=== PATIENT | female | born 1955 | race Caucasian/White ===

== ENCOUNTER 2016-02-16 10:26 | Inpatient (IN) | payer SELFPAY ==
[~2016-02-16] VITALS: Ht 160 cm; Wt 81.9 kg
[~2016-02-16 10:26] MED LIST: ALBUTEROL0.09 MG/A2 INH; AMOXIL500 MG PO; AUGMENTIN 875875 MG PO; AVPAK AZITHROM250 M1 PO; DELTASONE10 MG PO; DUONEB 3 MG/3 ML3 M1 INH; LISINOPRIL5 MG PO; MEDROL DOSEPAK4 MG PO; NKHM; PREDNICOT10 MG PO; PREDNISONE10 MG PO; PROVENTIL0.09 MG/AC IH; ZESTRIL,PRINIVI20 MG PO; ZITHROMAX Z PA250 MG PO
[2016-02-16 10:57] VITALS: BP 163/82
[2016-02-16 12:30] LABS: HEMATOCRIT 35.9 % (37.0-47.0); HEMOGLOBIN 12.2 g/dl (12.0-16.0); MEAN CORPUSCULAR HGB 32.3 pg (27.0-31.0); MEAN PLATELET VOLUME 10.6 fl (9.6-12.3); PLATELET COUNT AUTOMATED 405 10*3/uL (130-400); RED BLOOD COUNT 3.78 10*6/uL (4.10-5.10); RED CELL DISTRI WIDTH 13.7 % (0-14.5)
[2016-02-16 12:32] LABS: ABG BASE EXCESS 2.5 mmol/L (-2.0-2.0); ABG CO2 CONTENT 26.9 mmol/L (23-27); ABG HCO3 25.8 mmol/l (22-26); ABG TEMPERATURE 100.2 F (98.0-99.0); ARTERIAL BLOOD GAS PH 7.446 (7.35-7.45); ARTERIAL BLOOD GAS PO2 64.8 mmHg (80-90)
[2016-02-16 12:38] VITALS: BP 138/80
[2016-02-16 12:46] LABS: BUN 8 mg/dl (7-24); CARBON DIOXIDE 27 mmol/L (21-32); CHLORIDE 104 mmol/L (98-107); EST GLOM FILT AFRICAN AMERICAN > 60 ml/min; GLUCOSE 103 mg/dL (65-99); LYMPHOCYTE # 2.1 10*3/uL (1.3-4.4); MONOCYTE # 2.5 10*3/uL (0.1-1.0); NEUTROPHIL # 18.4 10*3/uL (2.3-7.9); NEUTROPHILS 80 % (47-73); PLATELET SUFFICIENCY NORMAL (NORMAL); POTASSIUM 3.3 mmol/L (3.5-5.1); SODIUM 139 mmol/L (136-145); TOTAL CELLS COUNTED 100 #CELLS
[2016-02-16 16:00] VITALS: BP 145/74
[2016-02-16 20:00] VITALS: BP 138/71
[2016-02-17] VITALS: BP 141/87
[2016-02-17 05:47] LABS: BUN 12 mg/dl (7-24); CARBON DIOXIDE 23 mmol/L (21-32); CHLORIDE 107 mmol/L (98-107); CHOLESTEROL 168 mg/dL (<200); EST GLOM FILT AFRICAN AMERICAN > 60 ml/min; FREE T4 1.04 ng/dl (0.76-1.46); GLUCOSE 203 mg/dL (65-99); HDL CHOLESTEROL 69 mg/dl (40-60); LDL CHOLESTEROL 84 mg/dL (9-159); MAGNESIUM 1.7 mg/dL (1.5-2.1); SODIUM 142 mmol/L (136-145); THYROID STIM HORMONE (HS) 0.236 uIU/ml (0.358-4.75); TRIGLYCERIDES 76 mg/dl (<150); VLDL CHOLESTEROL 15 mg/dL (6-40)
[2016-02-17 05:51] LABS: HEMOGLOBIN A1c 4.8 % (4.8-5.6)
[2016-02-17 06:09] LABS: HEMATOCRIT 35.1 % (37.0-47.0); HEMOGLOBIN 11.6 g/dl (12.0-16.0); MEAN CELL VOLUME 96.2 fl (81.0-99.0); MEAN CORPUSCULAR HGB 31.8 pg (27.0-31.0); MEAN PLATELET VOLUME 11.5 fl (9.6-12.3); PLATELET COUNT AUTOMATED 400 10*3/uL (130-400); RED BLOOD COUNT 3.65 10*6/uL (4.10-5.10); RED CELL DISTRI WIDTH 13.6 % (0-14.5); WHITE BLOOD COUNT 22.3 10*3/uL (4.8-10.8)
[2016-02-17 07:20] LABS: MONOCYTE # 0.2 10*3/uL (0.1-1.0); NEUTROPHIL # 22.1 10*3/uL (2.3-7.9); NEUTROPHILS 99 % (47-73); TOTAL CELLS COUNTED 100 #CELLS
[2016-02-17 07:21] LABS: PLATELET SUFFICIENCY NORMAL (NORMAL)
[2016-02-17 08:00] VITALS: BP 132/63
[2016-02-17 12:00] VITALS: BP 133/66
[2016-02-17 16:00] VITALS: BP 132/66
[2016-02-17 20:00] VITALS: BP 139/67
[2016-02-17 23:50] VITALS: BP 150/88
[2016-02-18] VITALS: BP 157/82
[2016-02-18 03:50] VITALS: BP 138/78
[2016-02-18 06:26] LABS: HEMATOCRIT 33.6 % (37.0-47.0); HEMOGLOBIN 11.3 g/dl (12.0-16.0); MEAN CELL VOLUME 95.5 fl (81.0-99.0); MEAN CORPUSCULAR HGB 32.1 pg (27.0-31.0); MEAN CORPUSCULAR HGB CONC 33.6 g/dl (33.0-37.0); MEAN PLATELET VOLUME 11.4 fl (9.6-12.3); PLATELET COUNT AUTOMATED 418 10*3/uL (130-400); RED BLOOD COUNT 3.52 10*6/uL (4.10-5.10); WHITE BLOOD COUNT 31.1 10*3/uL (4.8-10.8)
[2016-02-18 07:00] LABS: BUN 18 mg/dl (7-24); CARBON DIOXIDE 22 mmol/L (21-32); CHLORIDE 108 mmol/L (98-107); EST GLOM FILT AFRICAN AMERICAN > 60 ml/min; GLUCOSE 114 mg/dL (65-99); POTASSIUM 3.8 mmol/L (3.5-5.1); SODIUM 141 mmol/L (136-145)
[2016-02-18 07:19] LABS: HOWELL-JOLLY BODIES FEW; LYMPHOCYTE # 1.6 10*3/uL (1.3-4.4); MONOCYTE # 0.9 10*3/uL (0.1-1.0); NEUTROPHIL # 28.6 10*3/uL (2.3-7.9); NEUTROPHILS 92 % (47-73); POLYCHROMASIA SLIGHT; TOTAL CELLS COUNTED 100 #CELLS
[2016-02-18 07:20] LABS: PLATELET SUFFICIENCY NORMAL (NORMAL)
[2016-02-18 08:00] VITALS: BP 150/84
[2016-02-18] MEDS ORDERED: LEVAQUIN750 M1 PO (11:45)
[2016-02-18] MEDS ORDERED: PREDNISONE10 MG PO (11:45)
[2016-02-18 12:00] VITALS: BP 143/75; BP 146/81
[2016-02-18] MEDS ORDERED: DUONEB 3 MG/3 ML3 M1 NEB (14:17)
[2016-02-18 15:09] LABS: FOLIC ACID 8.11 ng/mL (>5.38)
== END 2016-02-18 14:15 | disposition home or self-care (01) | DRG 871 ==
LOC: ED 10:26 → EDHOLD 14:04 → 4E 14:41
PROVIDERS: Emergency Medicine; Internal Medicine
DX: A40.3 Sepsis due to Streptococcus pneumoniae (principal); J96.01 Acute respiratory failure with hypoxia; J18.1 Lobar pneumonia, unspecified organism; J44.1 Chronic obstructive pulmonary disease with (acute) exacerbation; J44.0 Chronic obstructive pulmonary disease with (acute) lower respiratory infection; I10 Essential (primary) hypertension; E87.6 Hypokalemia; T38.0X5A Adverse effect of glucocorticoids and synthetic analogues, initial encounter; F17.219 Nicotine dependence, cigarettes, with unspecified nicotine-induced disorders; Y95 Nosocomial condition; Z90.81 Acquired absence of spleen

== ENCOUNTER 2016-03-04 16:37 | Emergency (ER) | payer SELFPAY ==
[~2016-03-04] VITALS: Ht 160 cm; Wt 88.9 kg
[~2016-03-04 16:37] MED LIST changes: +DUONEB 3 MG/3 ML3 M1 NEB; +LEVAQUIN750 M1 PO
[2016-03-04] MEDS ORDERED: VALTREX1 GM PO (17:18)
[2016-03-04] MEDS ORDERED: NORCO 5-325 TA1 EACH PO (17:18)
== END 2016-03-04 17:49 | disposition home or self-care (01) ==
LOC: ED 16:37
DX: B02.9 Zoster without complications (principal); F17.200 Nicotine dependence, unspecified, uncomplicated; Z88.1 Allergy status to other antibiotic agents

== ENCOUNTER 2016-09-07 09:50 | Inpatient (IN) | payer SELFPAY ==
[~2016-09-07] VITALS: Ht 158.7 cm; Wt 80.6 kg
[2016-09-07] VITALS (13 sets, daily range): BP systolic 98–200; BP diastolic 47–118
[~2016-09-07 09:50] MED LIST changes: +NORCO 5-325 TA1 EACH PO; +VALTREX1 GM PO
[2016-09-07] MEDS ORDERED: VENTOLIN H0.09 MG/AC INH (09:58)
[2016-09-07 10:17] LABS: BASO # 0.1 10*3/uL (0.0-0.1); BASO % 0.6 % (0.0-1.0); EOS # 0.1 10*3/uL (0.0-0.4); EOS % 0.5 % (1.0-4.0); HEMATOCRIT 41.6 % (37.0-47.0); HEMOGLOBIN 14.4 g/dl (12.0-16.0); LYMPH # 2.7 10*3/uL (1.3-4.4); MEAN CELL VOLUME 93.1 fl (81.0-99.0); MEAN CORPUSCULAR HGB 32.2 pg (27.0-31.0); MEAN CORPUSCULAR HGB CONC 34.6 g/dl (33.0-37.0); MEAN PLATELET VOLUME 10.3 fl (9.6-12.3); MONO # 1.3 10*3/uL (0.1-1.0); NEUT # 8.7 10*3/uL (2.3-7.9); NEUT % 67.6 % (47.0-73.0); PLATELET COUNT AUTOMATED 346 10*3/uL (130-400); RED BLOOD COUNT 4.47 10*6/uL (4.10-5.10); RED CELL DISTRI WIDTH 13.5 % (0-14.5); WHITE BLOOD COUNT 12.9 10*3/uL (4.8-10.8)
[2016-09-07 10:25] LABS: PROTHROMBIN TIME 10.8 SECONDS (9.0-12.4)
[2016-09-07 10:34] LABS: ALBUMIN 3.8 gm/dl (3.1-4.5); ALKALINE PHOSPHATASE 107 U/L (45-117); BILIRUBIN, TOTAL 0.8 mg/dl (0.2-1.0); BUN 10 mg/dl (7-24); CARBON DIOXIDE 24 mmol/L (21-32); CHLORIDE 106 mmol/L (98-107); CPK 73 U/L (26-192); EST GLOM FILT AFRICAN AMERICAN > 60 ml/min; GLUCOSE 103 mg/dL (65-99); MAGNESIUM 1.6 mg/dL (1.5-2.1); POTASSIUM 3.6 mmol/L (3.5-5.1); SGOT/AST 22 IU/L (3-35); SGPT/ALT 29 U/L (12-78); SODIUM 142 mmol/L (136-145); TOTAL PROTEIN 7.5 gm/dL (6.4-8.2)
[2016-09-07 10:35] LABS: TROPONIN I < 0.015 ng/ml (<0.045)
[2016-09-07 18:07] LABS: CKMB 1.5 ng/ml (0.5-3.6); CPK 80 U/L (26-192); TROPONIN I < 0.015 ng/ml (<0.045)
[2016-09-08] VITALS: BP 129/73
[2016-09-08 05:57] LABS: BASO # 0.1 10*3/uL (0.0-0.1); BASO % 0.6 % (0.0-1.0); EOS # 0.2 10*3/uL (0.0-0.4); EOS % 2.8 % (1.0-4.0); HEMATOCRIT 37.9 % (37.0-47.0); HEMOGLOBIN 12.6 g/dl (12.0-16.0); LYMPH # 2.7 10*3/uL (1.3-4.4); MEAN CELL VOLUME 95.7 fl (81.0-99.0); MEAN CORPUSCULAR HGB 31.8 pg (27.0-31.0); MEAN CORPUSCULAR HGB CONC 33.2 g/dl (33.0-37.0); MEAN PLATELET VOLUME 10.6 fl (9.6-12.3); MONO # 0.8 10*3/uL (0.1-1.0); MONO % 10.5 % (3.0-9.0); NEUT # 4.1 10*3/uL (2.3-7.9); PLATELET COUNT AUTOMATED 321 10*3/uL (130-400); RED BLOOD COUNT 3.96 10*6/uL (4.10-5.10); RED CELL DISTRI WIDTH 13.7 % (0-14.5); WHITE BLOOD COUNT 7.8 10*3/uL (4.8-10.8)
[2016-09-08 06:14] LABS: HEMOGLOBIN A1c 4.8 % (4.8-5.6)
[2016-09-08 06:29] LABS: PROTHROMBIN TIME 10.1 SECONDS (9.0-12.4)
[2016-09-08 06:33] LABS: BUN 11 mg/dl (7-24); CARBON DIOXIDE 27 mmol/L (21-32); CHLORIDE 104 mmol/L (98-107); GLUCOSE 95 mg/dL (65-99); SODIUM 140 mmol/L (136-145)
[2016-09-08 06:46] LABS: CHOLESTEROL 164 mg/dL (<200); EST GLOM FILT AFRICAN AMERICAN > 60 ml/min; FREE T4 0.84 ng/dl (0.76-1.46); HDL CHOLESTEROL 45 mg/dl (40-60); LDL CHOLESTEROL 79 mg/dL (9-159); TRIGLYCERIDES 198 mg/dl (<150); VLDL CHOLESTEROL 40 mg/dL (6-40)
[2016-09-08 07:32] LABS: VITAMIN D, 25-HYDROXY 11.3 ng/mL (30-100)
[2016-09-08 07:33] LABS: FOLIC ACID 11.2 ng/mL (>5.38)
[2016-09-08 08:00] VITALS: BP 153/78
[2016-09-08] MEDS ORDERED: D-1000 185 MG-11 TAB PO (11:24)
[2016-09-08] MEDS ORDERED: LISINOPRIL20 MG PO (11:24)
[2016-09-08] MEDS ORDERED: B12,B-12,B 12500 MC1 PO (11:24)
== END 2016-09-08 12:18 | disposition home or self-care (01) | DRG 304 ==
LOC: ED 09:50 → EDHOLD 12:28 → 4E 12:32
PROVIDERS: Family Medicine; Registered Nurse
DX: I16.1 Hypertensive emergency (principal); N17.0 Acute kidney failure with tubular necrosis; G93.41 Metabolic encephalopathy; H47.10 Unspecified papilledema; D72.829 Elevated white blood cell count, unspecified; J44.9 Chronic obstructive pulmonary disease, unspecified; F17.210 Nicotine dependence, cigarettes, uncomplicated; N39.3 Stress incontinence (female) (male); I10 Essential (primary) hypertension; N39.41 Urge incontinence; Z90.81 Acquired absence of spleen; Z82.61 Family history of arthritis; Z82.49 Family history of ischemic heart disease and other diseases of the circulatory system

== ENCOUNTER 2017-05-31 11:35 | Inpatient (IN) | payer SELFPAY ==
[~2017-05-31] VITALS: Ht 160 cm; Wt 74.4 kg
--- NOTE | ~2017-05-31 | O ---
[place], [place] OPERATIVE NOTE NAME: ELLE KELLER UNIT #: [id number] ROOM: 506 DOCTOR: ALICIA HOBBS,DANNY BIRTHDATE: [birth year] DOS: 06/03/2017 INDICATIONS: A 62-year-old patient who presented with chief complaint of abnormal liver function test, leukocytosis, pancreatitis, undergoing investigation. We have had previous ERCP which has been ambiguous in detail. MRCP was obtained. I talked to the Radiologist, he could not make sense out of the findings. Therefore, the concerns that we have that we have to organize repeat ERCP. PROCEDURE: Today's procedure part of investigation is ERCP. PREMEDICATION: Versed and Diprivan. SCOPE: Olympus side viewing duodenum scope. REPORT: After putting the patient in left lateral position and application of lubricant to the scope, the scope was introduced. Thereafter, under direct visualization, I advanced through the length of esophagus into gastric pouch into duodenal bulb in front of the papilla of Vater. Selective cannulization was of common duct was done. Guidewire was advanced. Again, as soon as I infused dye into the ampulla of Vater is picked up with the cystic structure, which appears to be taking off from proximal common bile duct. Some dye was infused into the common duct. Otherwise, no obstruction was seen; however, limited patient extubated after ideation or confirmation of cholodocal cyst. The patient tolerated procedure well. 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 ____. PLAN AND DISCUSSION: At this stage, we are going to assure that she does not have synchronous infectious concerns like lungs and UTI. In future, we can refer for biliary surgery for removal of a Cholodocal cystectomy. That may be also the cause of her pancreatitis. [place], [place] OPERATIVE NOTE NAME: ELLE KELLER UNIT #: [id number] ROOM: 506 DOCTOR: DANNY VARGAS MD BIRTHDATE: [birth year] DANNY VARGAS MD CM:OPRECORD:OPERATIVE NOTE 1514 1622 DANNY VARGAS MD 06/03/17 1621 interface
--- NOTE | ~2017-05-31 | O ---
[place], [place] OPERATIVE NOTE [id number] UN[facility] #: [id number] ROOM: 416 DOCTOR: ALICIA HOBBSDANNY BIRTHDATE: [birth year] DOS: 06/01/2017 HISTORY OF PRESENT ILLNESS: The patient is 62 years old, who has presented with multiple medical problems, among which abnormal LFTs, pancreatitis, suspected for gallstone pancreatitis and elevation of lipase greater than 1300. PAST MEDICAL HISTORY: COPD, chronic bronchitis, hypertension. PAST SURGICAL HISTORY: , splenectomy. SOCIAL HISTORY: Smoker and social alcohol consumer. FAMILY HISTORY: Noncontributory. ALLERGIES: LEVOFLOXACIN. Consultation has been in detail dictated. PROCEDURE: Today's procedure part of investigation is ERCP. PREMEDICATION: Versed and Diprivan. SCOPE: Olympus side viewing duodenum scope. REPORT: After putting the patient in left lateral position and application of lubricant to the scope, the scope was introduced. Thereafter, under direct visualization, advanced through the length of esophagus into the duodenum. Severe duodenitis was identified with great difficulty, a very ambiguous papilla was suspected, finally cannulized and dye was infused and dye is only being picked up with cystic duct and gallbladder sac and I could not convinced the ducts to accept dyes. This irregular finding despite the fact that I had a guidewire to the hepatic radicles was abnormal due to the fact that dye was not been picked up with a biliary tree and only being picked up with cystic duct. Despite the fact that I pulled the cannula out all the way toward the orifice of the ampulla and reinfused the dye, this was not opacifying the ducts. At this stage, since I was concerned about the ambiguity of the anatomy, we had to extubate the patient and radiologic films were obtained that clearly shows gallbladder sac, which is distended as well as shows the part of the cystic duct. PLAN AND DISCUSSION: I am going to organize an MRCP tomorrow morning, if possible repeating the LFTs and clinical reassessment after tomorrow's results. In any case, if we had to even do therapeutics, it would have been difficult due to the position of the ampulla and difficulty in cannulization. I see it difficult technically for papillotomy, accessing the common duct with a stent if we needed to. However, I need more information; therefore, we are going to make all the arrangements above-mentioned. We are going to keep the patient off the anticoagulant. We are going to have a followup on ____ lipid levels tomorrow as well and daily and redecision if we have to redo ERCP or others as may be necessary. [place], [place] OPERATIVE NOTE NAME: ELLE KELLER Shravan UNIT #: [id number] ROOM: 416 DOCTOR: DANNY VARGAS MD BIRTHDATE: [birth year] DANNY VARGAS MD CM:OPRECORD:OPERATIVE NOTE 11 43 DANNY VARGAS MD 06/01/172042 interface
--- NOTE | ~2017-05-31 | CON ---
[place], [place] REPORT OF CONSULTATION [id number] UNIT #: [id number] ROOM: 416 DOCTOR: DANNY VARGAS MD BIRTHDATE: [birth year] DOS: 06/01/2017 HISTORY OF PRESENT ILLNESS: This is a 62-year-old patient who has presented with multiple problems among which has been her shortness of breath, oxygen dependency and known history of COPD and shortness of breath. The patient was found with abnormal liver function tests. I was called by Emergency Room and the concern about abnormal LFT and dilation of common bile duct to 1.9 cm. Multiple bilateral renal lithiasis. So we have been concerned since she has pancreatitis to rule out gallstone pancreatitis. At the time of admission, her electrolytes were reviewed, which were within borderline hypokalemia. Calcium was 6.6. Her slight elevation of BUN and creatinine noticed. Liver function tests: SGOT and SGPT of 100+, alkaline phosphatase 128, lipase of 1300+ was identified. Calcium ionized is 3.29. Low calcium. Comprehensive metabolic panel was reassessed, drop in calcium to 5.8 was noticed. Magnesium of 1.4 rather has been addressed. Hemoglobin A1c 4.8. Urine culture multi-organism contamination possibility. PAST MEDICAL HISTORY: COPD, hypertension, and nicotine dependency. PAST SURGICAL HISTORY: and splenectomy, which was done secondary to trauma. SOCIAL HISTORY: Active smoker and social alcohol consumer. FAMILY HISTORY: Noncontributory. ALLERGIES: LEVOFLOXACIN. HOME MEDICATIONS: Include multivitamin and lisinopril. REVIEW OF SYSTEMS: HEENT: Denies double vision, blurred vision. RESPIRATORY: Admits to shortness of breath. CARDIOVASCULAR: Denies chest pain. DIGESTIVE SYSTEM: Across abdominal pain, severe with radiation to the back. No hematemesis, no hematochezia. PHYSICAL EXAMINATION: RESPIRATORY: Short of breath on nasal O2. VITAL SIGNS: Stable. HEENT: Benign. Eyes: Pupils round and reactive. Sclerae nonicteric. Mouth and buccal mucosa benign. NECK: Supple, no thyromegaly. CHEST: Symmetric anatomy. Decreased air entry bilaterally is noticed. The patient is wheezing. HEART: Normal sinus rhythm, no gallop, no murmur. ABDOMEN: Soft. No organomegaly, large in anatomy, tender across the abdomen, which she says radiating to the back. EXTREMITIES: No cyanosis, no pedal edema. NEUROLOGIC: Alert and oriented to time and person. She is able to give me her [place], [place] REPORT OF CONSULTATION NAME: ELLE KELLER UNIT #: [id number] ROOM: [facility] DOCTOR: DANNY VARGAS MD BIRTHDATE: [birth year] medical history. IMPRESSION: Pancreatitis, ruling out gallstone pancreatitis, dilated common bile duct with possibility of pathology obstructive at distal common duct, abnormal liver function test, status post hydration, status post correction of hypomagnesemia and hypokalemia, at the present time hypocalcemia. Renal insufficiency. Hypocalcemia could be secondary to saponification, the patient with normal albumin level. PLAN AND DISCUSSION: We are going to see if there is obstructive pathology of common duct. This is going to be addressed with an endoscopic retrograde cholangiopancreatography and therapeutics and other adjunctive diagnoses as outlined in paragraph past medical and surgical history and clinical reassessment. We are on the other hand recognizing. The patient's triglyceride has been 218 and normal is less than 150. Perhaps this is contribution from above as well possibly. She is asking for food. She has been told that she is going to be n.p.o. on IV. As far as calcium is concerned, replacement has been given. DANNY VARGAS MD CM:CONSTR:REPORT OF CONSULTATION 1641 06/01/17 4595 interface
[~2017-05-31 11:35] MED LIST changes: +B12,B-12,B 12500 MC1 PO; +D-1000 185 MG-11 TAB PO; +LISINOPRIL20 MG PO; +VENTOLIN H0.09 MG/AC INH
[2017-05-31 11:40] VITALS: BP 128/75
[2017-05-31 12:06] LABS: HEMATOCRIT 42.8 % (37.0-47.0); HEMOGLOBIN 14.9 g/dl (12.0-16.0); MEAN CELL VOLUME 93.4 fl (81.0-99.0); MEAN CORPUSCULAR HGB 32.5 pg (27.0-31.0); MEAN CORPUSCULAR HGB CONC 34.8 g/dl (33.0-37.0); MEAN PLATELET VOLUME 10.7 fl (9.6-12.3); PLATELET COUNT AUTOMATED 237 10*3/uL (130-400); RED BLOOD COUNT 4.58 10*6/uL (4.10-5.10); RED CELL DISTRI WIDTH 13.5 % (0-14.5)
[2017-05-31 12:23] LABS: ALBUMIN 3.2 gm/dl (3.1-4.5); CREATININE 1.43 mg/dL (0.55-1.02); POTASSIUM 3.2 mmol/L (3.5-5.1); TOTAL PROTEIN 6.8 gm/dL (6.4-8.2)
[2017-05-31 12:27] LABS: PLATELET SUFFICIENCY NORMAL (NORMAL); TOTAL CELLS COUNTED 100 #CELLS
[2017-05-31 12:31] LABS: BILIRUBIN 1+ (NEGATIVE); BLOOD TRACE-INTACT (NEGATIVE); CLARITY CLOUDY (CLEAR); COLOR YELLOW (YELLOW); GLUCOSE NEGATIVE (NEGATIVE); KETONE NEGATIVE (NEGATIVE); LEUKO ESTERASE 3+ (NEGATIVE); NITRITE POSITIVE (NEGATIVE); SPECIFIC GRAVITY 1.025 (1.005-1.030)
[2017-05-31 12:35] VITALS: BP 110/64
[2017-05-31 12:54] LABS: BACTERIA 4+; EPITHELIAL CELLS TNTC; RBC 21-30 rbc/hpf (0-2); WBC 51-100 wbc/hpf (0-5)
[2017-05-31 14:05] VITALS: BP 111/69
[2017-05-31 16:00] VITALS: BP 119/75
[2017-05-31 17:40] VITALS: BP 106/71
[2017-05-31] MEDS ORDERED: HAIR, SKIN & N1 EACH PO (18:06)
[2017-05-31 20:00] VITALS: BP 116/82
[2017-06-01] VITALS (12 sets, daily range): BP systolic 100–157; BP diastolic 54–88
[2017-06-01 00:27] LABS: ALBUMIN 2.7 gm/dl (3.1-4.5); CREATININE 1.33 mg/dL (0.55-1.02); POTASSIUM 3.8 mmol/L (3.5-5.1); TOTAL PROTEIN 5.8 gm/dL (6.4-8.2)
[2017-06-01 05:55] LABS: BASO % 0.2 % (0.0-1.0); EOS % 0.1 % (1.0-4.0); LYMPH # 0.9 10*3/uL (1.3-4.4); LYMPH % 5.1 % (27.0-41.0); MEAN CELL VOLUME 95.6 fl (81.0-99.0); MEAN CORPUSCULAR HGB 32.6 pg (27.0-31.0); MEAN CORPUSCULAR HGB CONC 34.1 g/dl (33.0-37.0); MEAN PLATELET VOLUME 11.3 fl (9.6-12.3); MONO # 1.1 10*3/uL (0.1-1.0); MONO % 5.8 % (3.0-9.0); NEUT # 16.2 10*3/uL (2.3-7.9); NEUT % 88.3 % (47.0-73.0); PLATELET COUNT AUTOMATED 205 10*3/uL (130-400); RED BLOOD COUNT 3.87 10*6/uL (4.10-5.10); RED CELL DISTRI WIDTH 13.6 % (0-14.5); WHITE BLOOD COUNT 18.3 10*3/uL (4.8-10.8)
[2017-06-01 05:56] LABS: HEMOGLOBIN 12.6 g/dl (12.0-16.0)
[2017-06-01 06:10] LABS: ALBUMIN 2.7 gm/dl (3.1-4.5); CREATININE 1.3 mg/dL (0.55-1.02); PHOSPHOROUS 2.7 mg/dL (2.5-4.9); POTASSIUM 3.6 mmol/L (3.5-5.1); TOTAL PROTEIN 5.9 gm/dL (6.4-8.2)
[2017-06-01 06:15] LABS: THYROID STIM HORMONE (HS) 0.898 uIU/ml (0.358-4.75)
[2017-06-02] VITALS: BP 118/75
[2017-06-02 04:00] VITALS: BP 108/64
[2017-06-02 06:04] LABS: ALBUMIN 2.3 gm/dl (3.1-4.5); ALKALINE PHOSPHATASE 90 U/L (45-117); CHLORIDE 113 mmol/L (98-107); CREATININE 0.77 mg/dL (0.55-1.02); LIPASE 355 U/L (73-393); POTASSIUM 3.9 mmol/L (3.5-5.1); SGOT/AST 47 IU/L (3-35); SGPT/ALT 42 U/L (12-78); SODIUM 142 mmol/L (136-145); TOTAL PROTEIN 5.9 gm/dL (6.4-8.2)
[2017-06-02 06:07] LABS: HEMATOCRIT 32.5 % (37.0-47.0); HEMOGLOBIN 10.8 g/dl (12.0-16.0); MEAN CELL VOLUME 97.3 fl (81.0-99.0); MEAN CORPUSCULAR HGB 32.3 pg (27.0-31.0); MEAN CORPUSCULAR HGB CONC 33.2 g/dl (33.0-37.0); MEAN PLATELET VOLUME 11.7 fl (9.6-12.3); PLATELET COUNT AUTOMATED 213 10*3/uL (130-400); RED BLOOD COUNT 3.34 10*6/uL (4.10-5.10); RED CELL DISTRI WIDTH 14.1 % (0-14.5); WHITE BLOOD COUNT 15.4 10*3/uL (4.8-10.8)
[2017-06-02 06:17] LABS: BUN 24 mg/dl (7-24)
[2017-06-02 06:38] LABS: PLATELET SUFFICIENCY NORMAL (NORMAL); TOTAL CELLS COUNTED 100 #CELLS
[2017-06-02 08:00] VITALS: BP 125/67
[2017-06-02 12:00] VITALS: BP 128/72
[2017-06-02 16:00] VITALS: BP 150/77
[2017-06-02 20:00] VITALS: BP 147/71
[2017-06-03] VITALS (11 sets, daily range): BP systolic 126–158; BP diastolic 69–86
[2017-06-03 07:09] LABS: HEMATOCRIT 32.1 % (37.0-47.0); HEMOGLOBIN 10.7 g/dl (12.0-16.0); MEAN CELL VOLUME 98.2 fl (81.0-99.0); MEAN CORPUSCULAR HGB 32.7 pg (27.0-31.0); MEAN CORPUSCULAR HGB CONC 33.3 g/dl (33.0-37.0); MEAN PLATELET VOLUME 11.6 fl (9.6-12.3); NUCLEATED RED BLOOD CELL 0.1 10*3/uL (0.0-0.0); NUCLEATED RED BLOOD CELL 0.5 % (0.0-0.0); PLATELET COUNT AUTOMATED 268 10*3/uL (130-400); RED BLOOD COUNT 3.27 10*6/uL (4.10-5.10); RED CELL DISTRI WIDTH 14.2 % (0-14.5); WHITE BLOOD COUNT 18.8 10*3/uL (4.8-10.8)
[2017-06-03 07:26] LABS: ALBUMIN 2.3 gm/dl (3.1-4.5); ALKALINE PHOSPHATASE 119 U/L (45-117); BUN 14 mg/dl (7-24); CHLORIDE 112 mmol/L (98-107); CREATININE 0.59 mg/dL (0.55-1.02); PHOSPHOROUS 1.3 mg/dL (2.5-4.9); POTASSIUM 3.6 mmol/L (3.5-5.1); SGOT/AST 33 IU/L (3-35); SGPT/ALT 34 U/L (12-78); SODIUM 142 mmol/L (136-145); TOTAL PROTEIN 5.9 gm/dL (6.4-8.2)
[2017-06-03 08:05] LABS: TOTAL CELLS COUNTED 100 #CELLS
[2017-06-03 08:06] LABS: HOWELL-JOLLY BODIES FEW; PLATELET SUFFICIENCY NORMAL (NORMAL); TARGET CELLS FEW
[2017-06-04] VITALS: BP 135/71
[2017-06-04 06:39] LABS: HEMATOCRIT 28.3 % (37.0-47.0); HEMOGLOBIN 9.5 g/dl (12.0-16.0); MEAN CELL VOLUME 97.3 fl (81.0-99.0); MEAN CORPUSCULAR HGB 32.6 pg (27.0-31.0); MEAN CORPUSCULAR HGB CONC 33.6 g/dl (33.0-37.0); MEAN PLATELET VOLUME 10.6 fl (9.6-12.3); NUCLEATED RED BLOOD CELL 0.2 10*3/uL (0.0-0.0); PLATELET COUNT AUTOMATED 292 10*3/uL (130-400); RED BLOOD COUNT 2.91 10*6/uL (4.10-5.10); RED CELL DISTRI WIDTH 14.5 % (0-14.5); WHITE BLOOD COUNT 24.2 10*3/uL (4.8-10.8)
[2017-06-04 07:16] LABS: ALBUMIN 2.2 gm/dl (3.1-4.5); ALKALINE PHOSPHATASE 159 U/L (45-117); BUN 10 mg/dl (7-24); CHLORIDE 110 mmol/L (98-107); CREATININE 0.52 mg/dL (0.55-1.02); LIPASE 133 U/L (73-393); PHOSPHOROUS 2.2 mg/dL (2.5-4.9); POTASSIUM 3.6 mmol/L (3.5-5.1); SGOT/AST 33 IU/L (3-35); SGPT/ALT 31 U/L (12-78); SODIUM 139 mmol/L (136-145); TOTAL PROTEIN 5.7 gm/dL (6.4-8.2)
[2017-06-04 07:17] LABS: TOTAL CELLS COUNTED 100 #CELLS
[2017-06-04 07:18] LABS: PLATELET SUFFICIENCY NORMAL (NORMAL); TARGET CELLS FEW
[2017-06-04 07:19] LABS: HOWELL-JOLLY BODIES FEW; POLYCHROMASIA SLIGHT
[2017-06-04 07:20] LABS: BURR CELLS FEW
[2017-06-04 08:00] VITALS: BP 145/81
[2017-06-04 12:00] VITALS: BP 140/75
== END 2017-06-04 15:38 | disposition short-term general hospital (02) | DRG 871 ==
LOC: ED 11:35 → EDHOLD 17:34 → 4E 17:34 → ICCU 06-01 21:32 → 5E 06-02 09:10
PROVIDERS: Emergency Medicine; Internal Medicine; Student in an Organized Health Care Education/Training Program
PROC: 0FJB8ZZ Inspection of Hepatobiliary Duct, Via Natural or Artificial Opening Endoscopic (ICD-10-PCS; principal; 2017-06-01)
PROC: BF13YZZ Fluoroscopy of Gallbladder and Bile Ducts using Other Contrast (ICD-10-PCS; principal; 2017-06-01)
PROC: 0FJB8ZZ Inspection of Hepatobiliary Duct, Via Natural or Artificial Opening Endoscopic (ICD-10-PCS; 2017-06-03)
PROC: BF10YZZ Fluoroscopy of Bile Ducts using Other Contrast (ICD-10-PCS; 2017-06-03)
DX: A41.9 Sepsis, unspecified organism (principal); K85.90 Acute pancreatitis without necrosis or infection, unspecified; N17.0 Acute kidney failure with tubular necrosis; E43 Unspecified severe protein-calorie malnutrition; K83.8 Other specified diseases of biliary tract; E87.1 Hypo-osmolality and hyponatremia; Q44.4 Choledochal cyst; N39.0 Urinary tract infection, site not specified; J44.9 Chronic obstructive pulmonary disease, unspecified; I10 Essential (primary) hypertension; D72.810 Lymphocytopenia; F17.210 Nicotine dependence, cigarettes, uncomplicated; D64.9 Anemia, unspecified; R73.9 Hyperglycemia, unspecified; E55.9 Vitamin D deficiency, unspecified; E53.8 Deficiency of other specified B group vitamins; D72.9 Disorder of white blood cells, unspecified; E87.6 Hypokalemia; R74.0 Nonspecific elevation of levels of transaminase and lactic acid dehydrogenase [LDH]; R74.8 Abnormal levels of other serum enzymes; N20.0 Calculus of kidney; Z71.6 Tobacco abuse counseling; Z88.1 Allergy status to other antibiotic agents; Z90.81 Acquired absence of spleen; Z82.49 Family history of ischemic heart disease and other diseases of the circulatory system; Z79.899 Other long term (current) drug therapy; Z68.29 Body mass index [BMI] 29.0-29.9, adult

== ENCOUNTER 2017-07-29 05:16 | Emergency (ER) | payer OTHER ==
[~2017-07-29] VITALS: Ht 160 cm; Wt 72.6 kg
--- NOTE | ~2017-07-29 | EKG ---
[place], [place] ELECTROCARDIOGRAM REPORT NAME: ELLE KELLER UNIT #: [id number] ROOM: DOCTOR: CHLOE MORRELL MD BIRTHDATE: [birth year] DOS: 07/29/2017 TIME: 0533 hours. Normal sinus rhythm with 75 beats per minute. The tracing is normal. No previous tracing is available for comparison. CHLOE MORRELL MD CM:EKGRPT:ELECTROCARDIOGRAM REPORT 1119 1420 CHLOE MORRELL MD
[~2017-07-29 05:16] MED LIST changes: +HAIR, SKIN & N1 EACH PO
[2017-07-29 05:44] LABS: HEMATOCRIT 29.9 % (37.0-47.0); HEMOGLOBIN 9.6 g/dl (12.0-16.0); MEAN CELL VOLUME 93.7 fl (81.0-99.0); MEAN CORPUSCULAR HGB 30.1 pg (27.0-31.0); MEAN CORPUSCULAR HGB CONC 32.1 g/dl (33.0-37.0); MEAN PLATELET VOLUME 10.3 fl (9.6-12.3); PLATELET COUNT AUTOMATED 739 10*3/uL (130-400); RED BLOOD COUNT 3.19 10*6/uL (4.10-5.10); RED CELL DISTRI WIDTH 16.7 % (0-14.5); WHITE BLOOD COUNT 17.4 10*3/uL (4.8-10.8)
[2017-07-29 06:02] LABS: TOTAL CELLS COUNTED 100 #CELLS
[2017-07-29 06:03] LABS: ALBUMIN 2.2 gm/dl (3.1-4.5); ALKALINE PHOSPHATASE 244 U/L (45-117); BUN 9 mg/dl (7-24); BURR CELLS FEW; CHLORIDE 105 mmol/L (98-107); CREATININE 0.63 mg/dL (0.55-1.02); PLATELET SUFFICIENCY HIGH (NORMAL); POLYCHROMASIA SLIGHT; POTASSIUM 3.5 mmol/L (3.5-5.1); SGOT/AST 26 IU/L (3-35); SGPT/ALT 24 U/L (12-78); SODIUM 141 mmol/L (136-145); TARGET CELLS FEW
[2017-07-29 06:42] LABS: LIPASE 55 U/L (73-393)
[2017-07-29 07:26] LABS: ACT PARTIAL THROMBO TIME 22.3 SECONDS (20.8-31.5)
[2017-07-29 08:14] LABS: BILIRUBIN NEGATIVE (NEGATIVE); BLOOD NEGATIVE (NEGATIVE); CLARITY CLEAR (CLEAR); COLOR YELLOW (YELLOW); GLUCOSE NEGATIVE (NEGATIVE); KETONE NEGATIVE (NEGATIVE); LEUKO ESTERASE NEGATIVE (NEGATIVE); NITRITE NEGATIVE (NEGATIVE); SPECIFIC GRAVITY <= 1.005 (1.005-1.030); UROBILINOGEN 0.2 E.U./dl (0.2-1.0)
== END 2017-07-29 23:40 | disposition short-term general hospital (02) ==
LOC: ED 05:16
PROVIDERS: Emergency Medicine
DX: D72.829 Elevated white blood cell count, unspecified (principal); D64.9 Anemia, unspecified; N20.0 Calculus of kidney; D47.3 Essential (hemorrhagic) thrombocythemia; J44.9 Chronic obstructive pulmonary disease, unspecified; E87.6 Hypokalemia; I10 Essential (primary) hypertension; Z88.1 Allergy status to other antibiotic agents

== ENCOUNTER 2017-08-24 15:03 | Emergency (ER) | payer OTHER ==
[2017-08-24 15:52] LABS: HEMATOCRIT 29.5 % (37.0-47.0); HEMOGLOBIN 9.7 g/dl (12.0-16.0); MEAN CELL VOLUME 89.4 fl (81.0-99.0); MEAN CORPUSCULAR HGB 29.4 pg (27.0-31.0); MEAN CORPUSCULAR HGB CONC 32.9 g/dl (33.0-37.0); MEAN PLATELET VOLUME 10.3 fl (9.6-12.3); NUCLEATED RED BLOOD CELL 0.1 % (0.0-0.0); PLATELET COUNT AUTOMATED 702 10*3/uL (130-400); RED CELL DISTRI WIDTH 16.3 % (0-14.5)
[2017-08-24 15:56] LABS: WHITE BLOOD COUNT 56.8 10*3/uL (4.8-10.8)
[2017-08-24 16:01] LABS: ACT PARTIAL THROMBO TIME 22.6 SECONDS (20.8-31.5); INTERNATIONAL NORM RATIO 1.1 (2.0-3.5)
[2017-08-24 16:08] LABS: ALBUMIN 1.8 gm/dl (3.1-4.5); ALKALINE PHOSPHATASE 275 U/L (45-117); BUN 22 mg/dl (7-24); CHLORIDE 98 mmol/L (98-107); LIPASE 44 U/L (73-393); POTASSIUM 3.1 mmol/L (3.5-5.1); SGOT/AST 21 IU/L (3-35); SGPT/ALT 26 U/L (12-78); SODIUM 134 mmol/L (136-145); TOTAL PROTEIN 6.4 gm/dL (6.4-8.2)
[2017-08-24 16:10] LABS: TOTAL CELLS COUNTED 100 #CELLS; TROPONIN I < 0.015 ng/ml (<0.045)
[2017-08-24 16:11] LABS: BURR CELLS FEW; PLATELET SUFFICIENCY HIGH (NORMAL); TOXIC GRANULATION MODERATE
[2017-08-24 16:12] LABS: TARGET CELLS FEW
[2017-08-24 16:20] LABS: BILIRUBIN NEGATIVE (NEGATIVE); BLOOD 3+ (NEGATIVE); CLARITY SL CLOUDY (CLEAR); COLOR YELLOW (YELLOW); GLUCOSE NEGATIVE (NEGATIVE); KETONE NEGATIVE (NEGATIVE); LEUKO ESTERASE 1+ (NEGATIVE); NITRITE NEGATIVE (NEGATIVE); SPECIFIC GRAVITY <= 1.005 (1.005-1.030)
[2017-08-24 16:26] LABS: BACTERIA 2+; RBC 51-100 rbc/hpf (0-2)
[2017-08-24] MEDS ORDERED: DULCOLAX10 M1 R (17:52)
[2017-08-24] MEDS ORDERED: FLEET BISACODYL5 MG R (17:53)
[2017-08-24] MEDS ORDERED: LACTAID3000 UNI1 PO (17:53)
[2017-08-24] MEDS ORDERED: MILK OF MA400 MG/5 M PO (17:54)
[2017-08-24] MEDS ORDERED: Oscal,Oyster S500 MG PO (17:54)
[2017-08-24] MEDS ORDERED: MULTIVITAMINS1 EAC5 PO (17:55)
== END 2017-08-24 23:59 | disposition short-term general hospital (02) ==
LOC: ED 15:03
PROVIDERS: Emergency Medicine
DX: A41.9 Sepsis, unspecified organism (principal); R10.9 Unspecified abdominal pain; F17.200 Nicotine dependence, unspecified, uncomplicated; I10 Essential (primary) hypertension; J44.9 Chronic obstructive pulmonary disease, unspecified; Z98.890 Other specified postprocedural states; Z90.89 Acquired absence of other organs; Z87.442 Personal history of urinary calculi; Z79.899 Other long term (current) drug therapy; Z88.1 Allergy status to other antibiotic agents

== ENCOUNTER 2017-09-11 16:06 | Emergency (ER) | payer OTHER ==
[~2017-09-11] VITALS: Wt 68.0 kg
--- NOTE | ~2017-09-11 | EKG ---
[place], [place] ELECTROCARDIOGRAM REPORT NAME: ELLE KELLER UNIT #: [id number] ROOM: DOCTOR: EPIPHANY DRAFT REPORT BIRTHDATE: [birth year] [facility] Test Date: 2017-09-11 Test Time: 16:21:41 Pat Name: ELLE KELLER Department: Room: Gender: F Cardiopulmonary Supervisor: TL : 1955 Requested By: DANITA PETTIT Order Number: [id number] Reading MD: Checo Alanis MD Measurements Intervals [place] Rate: 96 P: 74 NH: 132 QRS: 57 QRSD: 96 T: -85 QT: 343 QTc: 434 Interpretive Statements Sinus rhythm Nonspecific repol abnormality, diffuse leads Electronically Signed On 09-12-2017 10:24:39 PDT by Checo Alanis MD CM:EKGRPT:ELECTROCARDIOGRAM REPORT 1621 1024 DANITA [facility] DRAFT REPORT DANITA PETTIT MD
[~2017-09-11 16:06] MED LIST changes: -ALBUTEROL0.09 MG/A2 INH; -AMOXIL500 MG PO; -AUGMENTIN 875875 MG PO; -AVPAK AZITHROM250 M1 PO; -B12,B-12,B 12500 MC1 PO; -D-1000 185 MG-11 TAB PO; -DELTASONE10 MG PO; -DUONEB 3 MG/3 ML3 M1 INH; -DUONEB 3 MG/3 ML3 M1 NEB; -HAIR, SKIN & N1 EACH PO; -LEVAQUIN750 M1 PO; -LISINOPRIL20 MG PO; -NKHM; -NORCO 5-325 TA1 EACH PO; -PREDNICOT10 MG PO; -PREDNISONE10 MG PO; -PROVENTIL0.09 MG/AC IH; -VALTREX1 GM PO; -VENTOLIN H0.09 MG/AC INH; -ZESTRIL,PRINIVI20 MG PO; -ZITHROMAX Z PA250 MG PO
[2017-09-11 16:28] LABS: HEMATOCRIT 18.7 % (37.0-47.0); HEMOGLOBIN 6.3 g/dl (12.0-16.0); MEAN CORPUSCULAR HGB 28.6 pg (27.0-31.0); MEAN CORPUSCULAR HGB CONC 33.7 g/dl (33.0-37.0); MEAN PLATELET VOLUME 9.9 fl (9.6-12.3); NUCLEATED RED BLOOD CELL 0.1 % (0.0-0.0); NUCLEATED RED BLOOD CELL 0.1 10*3/uL (0.0-0.0); PLATELET COUNT AUTOMATED 696 10*3/uL (130-400); RED CELL DISTRI WIDTH 17.9 % (0-14.5)
[2017-09-11 16:32] LABS: WHITE BLOOD COUNT 58.4 10*3/uL (4.8-10.8)
[2017-09-11 16:36] LABS: ACT PARTIAL THROMBO TIME 28.8 SECONDS (20.8-31.5); INTERNATIONAL NORM RATIO 1.4 (2.0-3.5)
[2017-09-11 16:46] LABS: ALBUMIN 1.1 gm/dl (3.1-4.5); ALKALINE PHOSPHATASE 569 U/L (45-117); BUN 34 mg/dl (7-24); CHLORIDE 110 mmol/L (98-107); CREATININE 1.45 mg/dL (0.55-1.02); POTASSIUM 3.2 mmol/L (3.5-5.1); SGOT/AST 12 IU/L (3-35); SGPT/ALT 19 U/L (12-78); SODIUM 141 mmol/L (136-145); TOTAL PROTEIN 4.9 gm/dL (6.4-8.2)
[2017-09-11 16:48] LABS: PLATELET SUFFICIENCY HIGH (NORMAL); TOTAL CELLS COUNTED 100 #CELLS; TROPONIN I < 0.015 ng/ml (<0.045)
[2017-09-11 16:49] LABS: BURR CELLS FEW; TARGET CELLS FEW
[2017-09-11 17:00] LABS: BILIRUBIN NEGATIVE (NEGATIVE); BLOOD 3+ (NEGATIVE); CLARITY SL CLOUDY (CLEAR); COLOR YELLOW (YELLOW); GLUCOSE NEGATIVE (NEGATIVE); KETONE NEGATIVE (NEGATIVE); LEUKO ESTERASE 2+ (NEGATIVE); NITRITE NEGATIVE (NEGATIVE); UROBILINOGEN 0.2 E.U./dl (0.2-1.0)
[2017-09-11 17:09] LABS: WBC TNTC wbc/hpf (0-5); YEAST 3+
== END 2017-09-11 18:57 | disposition short-term general hospital (02) ==
LOC: ED 16:06
PROVIDERS: Emergency Medicine
DX: A41.9 Sepsis, unspecified organism (principal); K92.2 Gastrointestinal hemorrhage, unspecified; R19.7 Diarrhea, unspecified; E87.6 Hypokalemia; L89.153 Pressure ulcer of sacral region, stage 3; N39.0 Urinary tract infection, site not specified; J44.9 Chronic obstructive pulmonary disease, unspecified; I10 Essential (primary) hypertension; F17.200 Nicotine dependence, unspecified, uncomplicated; Z87.442 Personal history of urinary calculi; Z90.89 Acquired absence of other organs; Z98.890 Other specified postprocedural states; Z79.899 Other long term (current) drug therapy; Z88.1 Allergy status to other antibiotic agents

== ENCOUNTER 2017-12-03 11:01 | Inpatient (IN) | payer OTHER ==
[~2017-12-03] VITALS: Ht 157.4 cm; Wt 56.0 kg
--- NOTE | ~2017-12-03 | PROC NOTE ---
[place], [place] PROCEDURE NOTE NAME: ELLE KELLER [facility] #: [id number] UNIT #: [id number] ROOM: 509 DOCTOR: CRESCENCIO ELLISON BIRTHDATE: [birth year] DOS: 12/06/2017 MODIFIED BARIUM SWALLOW LOCATION: [facility], room 509, bed 1. ORDERING PHYSICIAN: Dr. Madrigal. RADIOLOGIST: Dr. Jacobs. BACKGROUND INFORMATION: The patient is a 62-year-old female was seen for modified barium swallow. This test was ordered to determine candidacy for resumption of p.o. feedings. This patient has been PEG tube fed since August 2017. She was [facility] from the [facility] with malfunctioning PEG tube. The PEG was unable to be reinserted; therefore, physician has ordered this swallowing study to determine if she cannot eat. MEDICAL HISTORY: Significant for COPD, history of splenectomy, history of pancreatitis, history of recent nephrostomy tubes placed, tobacco abuse, ethanol abuse, UTI, COPD and GERD. For today's assessment, the patient was alert and able to follow commands. Oral peripheral examination revealed natural teeth, which were in good condition. Lingual, labial, and buccal skills were within normal limits in terms of strength, range of motion and coordination. The patient was able to volitionally cough and swallow. METHODS AND MATERIALS USED FOR THE EXAM: The patient was positioned in the lateral plane and the exam was viewed under fluoroscopy. She was presented with a variety of consistencies to assess swallowing skills including applesauce mixed with barium, presented in half teaspoon amounts, barium-coated bread given in bite size pieces and thin liquid barium taken by cup and straw. ORAL PHASE: Unremarkable. PHARYNGEAL PHASE: Unremarkable. ESOPHAGEAL PHASE: This phase of the swallow was not formally assessed during this exam. IMPRESSIONS AND RECOMMENDATIONS: Based upon assessment results, this 62-year-old female presents with oral and pharyngeal swallowing skills that are within normal limits. When the patient is medically cleared for oral intake, recommend a regular diet and thin liquids with use of universal safe swallow precautions. Followup therapy is warranted at this time to ensure safe tolerance of diet. Results and recommendations were shared with the patient and nurse and they verbalized understanding. Thank you very much for this referral. Should you have any questions regarding this patient, please contact the speech pathologist at [phone]. [place], [place] PROCEDURE NOTE NAME: ELLE KELLER UNIT #: [id number] ROOM: 509 DOCTOR: CRESCENCIO ELLISON BIRTHDATE: [birth year] CRESCENCIO ELLISON CM:PROCNOTE:PROCEDURE NOTE 1534 02 CRESCENCIO ELLISON
--- NOTE | ~2017-12-03 | CON ---
[place], [place] REPORT OF CONSULTATION NAME: [facility] KE[facility] [id number] UNIT #: [id number] ROOM: 509 DOCTOR: SUE MEYER MD BIRTHDATE: [birth year] DOS: 12/04/2017 REASON FOR CONSULTATION: Intra-abdominal sepsis. CHIEF COMPLAINT: G-tube malfunction. HISTORY OF PRESENTING ILLNESS: This is a 62-year-old female with past medical history of COPD, hypertension, alcoholic pancreatitis, had a complicated intra-abdominal surgery at [facility] which we do not have the records at this time. She is currently admitted from [facility] because her G-tube fell out and she was otherwise doing fine. Denies having any fever or chills. No nausea, vomiting or diarrhea. They tried to put her G-tube back in the ER and that caused her lot of trauma. Currently, she is having abdominal pain and pain around her coccyx. I called the [facility] and the patient was getting cefepime 1 gram q. 8 hourly and metronidazole 500 mg twice a day and she was supposed to get 8 days, but information was not much helpful and we have asked for actual medical records from [facility]. She also has 2 ERICH tubes from each side of her abdomen. She has been seen by Gastroenterology, Dr. Madrigal, back in May at [facility] when she had pancreatitis and MRCP showed choledocholithiasis with choledochal cyst and a CT scan of abdomen and pelvis with contrast from July 2017 is available in a system, which shows that she had severe right-sided hydronephrosis with multiple ureteric stones and also she had large loculated retroperitoneal fluid collections consistent with pseudocyst, some of which were montages 20.2 cm, another 11.0 cm craniocaudal dimension and there was extrahepatic biliary dilation with pneumobilia. Currently on review of her vital, she is afebrile. On review of her labs, she did come with white count elevation 18.7, baseline not available, mostly neutrophilic. The patient has been started on cefepime plus metronidazole, previously got Zosyn. Abdominal x-ray, which was done yesterday, shows the plastic stent in the mid abdomen. Feeding tube is identified in the left lower quadrant. Positioning of device was not clear. A Gastrografin study was done that shows feeding tube was not in the GI tract. PAST MEDICAL HISTORY: Significant for hypertension, COPD, pancreatitis, hydronephrosis, obstructive jaundice and as mentioned above. Other past medical history includes renal stones. PAST SURGICAL HISTORY: Splenectomy, and complicated intraabdominal surgery with two ERICH drains and feeding tube records not available. PAST SOCIAL HISTORY: Alcoholic, currently not drinking, [id number] history of smoking. No illicit drug use. FAMILY HISTORY: Father is . Mother has history of rheumatoid arthritis and hyperglycemia. ALLERGIES: LEVAQUIN causes rash. [place], [place] REPORT OF CONSULTATION NAME: ELLE KELLER UNIT #: [id number] ROOM: 509 DOCTOR: BETSY HOBBSSUE BIRTHDATE: [birth year] HOME MEDICATIONS: Reviewed. REVIEW OF SYSTEMS: Twelve-point review of system has been done. Pertinent negatives and positives have been included in HPI, rest are noncontributory. PHYSICAL EXAMINATION: CURRENT VITAL SIGNS: Include temperature 98.3, pulse rate 92, respiratory rate 20, blood pressure 153/80, oxygen saturation 98% on room air. GENERAL: The patient is alert, oriented x 3, in mild distress because of abdominal pain. HEENT: Atraumatic, normocephalic. PERRLA, EOMI. RESPIRATORY: Air entry bilateral and equal. No wheeze or crackles. CARDIOVASCULAR: S1, S2 normal. Tachycardic. ABDOMEN: Soft, nontender, distended. PEG tube site is extremely painful. On moving the PEG tube, bilateral ERICH tubes draining from VAC. No exit site infection. EXTREMITIES: There is stage 2/3 decubitus ulcer on the back, which is clean base with fibrinous exudate, no foul smell. SKIN: On the right lower quadrant. There is an ill-defined ulcer around 3 x 3 cm with clean base pink granulation tissue. No drainage. Had a deep packing. LABORATORY DATA AND IMAGING: Reviewed, mentioned in HPI. ASSESSMENT: 1. Intra-abdominal sepsis. 2. History of alcoholic pancreatitis. 3. Pancreatitis with pseudocyst, status post drainage, currently has 2 ERICH tubes. 4. History of hydronephrosis, obstructive jaundice. 5. Renal stones. PLAN: At this time with minimal information available from the prison as well as from the electronic medical records, the patient has been getting cefepime and metronidazole for intra-abdominal sepsis, which should be continued. She has a right upper arm PICC line in place. Currently, alkaline phosphatase is still high and I am not sure what her baseline. At this time, after stabilizing with her PEG tube, she should be continued on cefepime, metronidazole to be stopped only after seen by Wallace Ghotra. I explained to the patient that because of her complicated intraabdominal surgery, it is better that she should be seen at the previous place; however, I am ready to provide any assistance as needed. Thank you for your consult. Please call for any questions. [place], [place] REPORT OF CONSULTATION NAME: ARIANNAELLE Shravan UNIT #: [id number] ROOM: [facility] BIRTH[facility]: [birth year] Delilah Meyer MD CM:CONSTR:REPORT OF CONSULTATION 1602 12/05/17 0140 interface
--- NOTE | ~2017-12-03 | O ---
[place], [place] OPERATIVE NOTE NAME: ELLE KELLER [facility] #: [id number] UNIT #: [id number] ROOM: 509 DOCTOR: ALICIA HOBBSDANNY BIRTHDATE: [birth year] DOS: 12/05/2017 GASTROENDOSCOPIC REPORT INDICATIONS: The patient with history of alcoholic pancreatitis and pseudocyst formation and cystectomy per duodenum. The retroperitoneum and extending to the pelvic quite extensive biliary workup with the stent in the biliary drain and biliary drainage or a dilated hepatic radicles. The patient presented with malfunctioning PEG to ER. Attempted in the ER to replace the PEG, it did not go in. Therefore, we are planning to replace the PEG through direct visualization. PROCEDURE: Today's procedure part of investigation is panendoscopy plus biopsy. PREMEDICATION: Propofol. SCOPE: Olympus forward-viewing gastroscope Q10 video. REPORT: After putting the patient in supine position, scope was introduced. Thereafter, under direct visualization, I advanced through the length of esophagus into gastric pouch. Bilious matter was suctioned out. There is evidence of hemorrhagic gastritis throughout. I tried to defined the gastric pouch anatomy. It appeared irregular. Finally, I entered the duodenum, there is a gigantic ulceration. Multiple orifice where appears to be duodenal second part and the stent loosely in the duodenum and due to the presence of this ulcer, which appeared to be very friable and long segment. I did not want to do any extra manipulation or biopsy. Neither attempted to remove the floating stent fear of perforation. Biopsy from gastric pouch as well as photographic series from gastric pouch was obtained. Bile was matter was suctioned out. We postponed placement of the PEG tube at this time until I have more definition and descriptions of the existing problem by consulting with the physicians, who have placed a biliary stent to see what exactly are they dealing with. Meanwhile, we are going to do a swallow study on the patient tomorrow to see if she is able to swallow without the PEG tube if possible. On the other hand, I am concerned about compromise that is on the way from duodenal bulb beyond if the gigantic long segment ulceration and concerns of such. PLAN AND DISCUSSION: I am going to keep her on PPI double dose Protonix b.i.d. Continue with IV hydration and reassessment the next day or so. Thank you very much again. [place], [place] OPERATIVE NOTE NAME: ELLE KELLER UNIT #: [id number] ROOM: 509 DOCTOR: ALICIA HOBBS,DANNY BIRTHDATE: [birth year] DANNY VAGRAS MD CM:OPRECORD:OPERATIVE NOTE 41 54 DANNY VARGAS MD 12/05/171955 interface
--- NOTE | ~2017-12-03 | PR ---
[place], [place] PROGRESS NOTE NAME: ELLE KELLER [facility] #: [id number] UNIT #: [id number] ROOM: 509 DOCTOR: ALICIA HOBBSDANNY BIRTHDATE: [birth year] DOS: 12/09/2017 HISTORY OF PRESENT ILLNESS: The patient has presented initially with a malfunctioning PEG tube that has not been infusing and radiologic documentation was confirmed the position of the PEG tube was not appropriate and it was subcutaneous, therefore endoscopically assess. The PEG tube was percutaneously removed. Site had been dressed and the site has healed. However, the patient has complained of left upper quadrant pain. Subsequently, an abscess, which has been opened spontaneously and draining at the left upper quadrant was noticed. Cultures from the abscess have been obtained and the patient is being sent to [facility] for further debridement and management. PAST SURGICAL HISTORY: and splenectomy. PAST MEDICAL HISTORY: Chronic obstructive pulmonary disease, chronic anemia, G-tube feeding and sacral ulcers, protein-calorie malnutrition, nicotine dependency all has been recognized. The patient has regained her swallow based on the barium study and therefore, we had made her p.o. intake and PEG has been entirely phase out of the management. MEDICATIONS: The patient has been on antibiotic cefepime, Zosyn and metronidazole. REVIEW OF SYSTEMS: No hematemesis, no hematochezia. No shortness of breath. No chest pain. DIGESTIVE SYSTEM: No nausea, vomiting, no diarrhea complaint of left flank pain, which is associated with large abscess. PHYSICAL EXAMINATION: VITAL SIGNS: Stable. HEENT: Within normal limit. NECK: Supple, no thyromegaly. CHEST: Symmetric anatomy, COPD pattern in general. Decreased air entry. HEART: Normal sinus rhythm, no gallop, no murmur. ABDOMEN: Soft. No hepato-organomegaly, multiple sites of previous abscesses were noticed. The new site of drainage is in left upper quadrant, left laterally and a yellow pus is draining out of it. Tender area. Bowel sounds are present. Past PEG site is entirely healed and sealed. EXTREMITIES: Benign. NEUROLOGIC: Fully alert and oriented. LABORATORY DATA: Reviewed. Records reviewed. IMPRESSION: Protein-calorie malnutrition, chronic obstructive pulmonary disease. New abscess formation in the left flank upper area from previous malfunctioning PEG tube, which has been removed. Site has healed independently of the existing abscess site. PLAN AND DISCUSSION: Surgical drainage is needed and this is being addressed by transferring the patient for surgical management. [place], [place] PROGRESS NOTE NAME: ELLE KELLER Shravan UNIT #: [id number] ROOM: [facility] DOCTOR: DANNY VARGAS MD BIRTHDATE: [birth year] DANNY VARGAS MD CM:PNTRANS 1545 0342 DANNY VARGAS MD 12/10/17 0343 interface
--- NOTE | ~2017-12-03 | CON ---
[place], [place] REPORT OF CONSULTATION NAME: ELLE KELLER UNIT #: [id number] ROOM: 509 DOCTOR: ALICIA HOBBSDANNY BIRTHDATE: [birth year] DOS: 12/05/2017 GASTROENDOSCOPIC CONSULTATION HISTORY OF PRESENT ILLNESS: This patient has been presented from care home with a malfunctioning PEG tube. I was called from the Emergency Room and they decided to help the patient in the Emergency Room by replacement with CARMEN G-tube. However, apparently after discussion with the ER physician, I have requested a Gastrografin confirmation of the G-tube positioning. At neither time of the retry and retry, the dye was ending up into gastric pouch. Therefore, I recommended to stop placement of the PEG due to the fact that I thought that the inner aspect of the ostomy, which is inside the stomach collapsed and therefore only the surface ostomy is open and therefore the G-tube is ending up between the peritoneum and the abdominal wall and surface of the gastric pouch. Therefore, no feeding was recommended until this is endoscopically addressed. PAST MEDICAL HISTORY: Pancreatitis, COPD, hypertension, nephrolithiasis. Apparently, the patient has had abdominal abscesses and being managed in past in [facility]. We do not have any records. We have requested the data. However, it is not going to take care of this acute concern we have right now. PAST SURGICAL HISTORY: , splenectomy, G-tube placement and malfunctioning of the tube. SOCIAL HISTORY: Smoker by history. FAMILY HISTORY: Rheumatoid arthritis. ALLERGIES: LEVAQUIN. MEDICATIONS: Medication list reviewed including heparin that has been placed on hold and antibiotics. REVIEW OF SYSTEMS: HEENT: Denies double vision, blurred vision. RESPIRATORY: Denies shortness of breath. CARDIOVASCULAR: Denies chest pain. DIGESTIVE SYSTEM: We are not sure why the PEG tube has been placed and if the patient has been challenged for swallow study, we could have bypass the PEG, but apparently she receives all supplies through PEG, medication and feeding. PHYSICAL EXAMINATION: GENERAL: Alert and oriented, nontoxic patient. VITAL SIGNS: Stable. HEENT: Head is normocephalic, nontraumatic. Eyes: Pupils round and reactive. Mouth and buccal mucosa extremely dry. No thrush. NECK: Supple, no thyromegaly, no cervical lymphadenopathy. CHEST: Symmetric anatomy, COPD pattern. No wheeze, no rhonchi. HEART: Normal sinus rhythm, no gallop, no murmur. [place], [place] REPORT OF CONSULTATION NAME: ELLE KELLER UNIT #: [id number] ROOM: [facility] DOCTOR: ALICIA HOBBS,DANNY BIRTHDATE: [birth year] ABDOMEN: Soft. No hepato-organomegaly. G-tube is sitting on the abdomen with the tip is still inside the ostomy site. Bowel sounds present. It is not tender. EXTREMITIES: No cyanosis, no pedal edema. NEUROLOGIC: Alert, oriented to time, place, person. IMPRESSION: Malfunctioning PEG tube. We are asked for placement of the PEG. Electrolytes and labs and records were reviewed. Her alkaline phosphatase is 557 and on the repeat 433 with bilirubin of 1.1. Basic metabolic was reassessed periodically. Calcium 10.8. CBC differential, anemia, H and H of 10 and 30, macrocytic in character with thrombocytosis was noticed. PLAN AND DISCUSSION: We are going to try endoscopically replace the PEG and awaiting medical records from [facility] knowing that it has been placed due to multi-abdominal abscess and complications of intraabdominal surgeries in the past. Therefore, we are attempting to replace the tube. Other adjunctive diagnoses as outlined in paragraph of past medical and surgical history. DANNY VARGAS MD CM:CONSTR:REPORT OF CONSULTATION 1909 12/06/17 0525 interface
[2017-12-03 11:01] VITALS: BP 157/87
[~2017-12-03 11:01] MED LIST changes: +ALBUTEROL0.09 MG/A2 INH; +AMOXIL500 MG PO; +AUGMENTIN 875875 MG PO; +AVPAK AZITHROM250 M1 PO; +B12,B-12,B 12500 MC1 PO; +D-1000 185 MG-11 TAB PO; +DELTASONE10 MG PO; +DULCOLAX10 M1 R; +DUONEB 3 MG/3 ML3 M1 INH; +DUONEB 3 MG/3 ML3 M1 NEB; +FLEET BISACODYL5 MG R; +HAIR, SKIN & N1 EACH PO; +LACTAID3000 UNI1 PO; +LEVAQUIN750 M1 PO; +LISINOPRIL20 MG PO; +MILK OF MA400 MG/5 M PO; +MULTIVITAMINS1 EAC5 PO; +NKHM; +NORCO 5-325 TA1 EACH PO; +Oscal,Oyster S500 MG PO; +PREDNICOT10 MG PO; +PREDNISONE10 MG PO; +PROVENTIL0.09 MG/AC IH; +VALTREX1 GM PO; +VENTOLIN H0.09 MG/AC INH; +ZESTRIL,PRINIVI20 MG PO; +ZITHROMAX Z PA250 MG PO
[2017-12-03 12:00] VITALS: BP 106/59
[2017-12-03 17:17] VITALS: BP 140/78
[2017-12-03 18:13] LABS: BILIRUBIN NEGATIVE (NEGATIVE); BLOOD 3+ (NEGATIVE); CLARITY CLOUDY (CLEAR); COLOR ORANGE (YELLOW); GLUCOSE NEGATIVE (NEGATIVE); KETONE NEGATIVE (NEGATIVE); LEUKO ESTERASE 2+ (NEGATIVE); NITRITE NEGATIVE (NEGATIVE); PH 6.5 (5.0-9.0); UROBILINOGEN 0.2 E.U./dl (0.2-1.0)
[2017-12-03 18:21] LABS: BACTERIA 4+; MUCOUS TRACE; RBC TNTC rbc/hpf (0-2); WBC TNTC wbc/hpf (0-5)
[2017-12-03 18:28] LABS: HEMATOCRIT 38.7 % (37.0-47.0); HEMOGLOBIN 12.4 g/dl (12.0-16.0); MEAN CELL VOLUME 108.7 fl (81.0-99.0); MEAN CORPUSCULAR HGB 34.8 pg (27.0-31.0); PLATELET COUNT AUTOMATED 818 10*3/uL (130-400); RED BLOOD COUNT 3.56 10*6/uL (4.10-5.10); RED CELL DISTRI WIDTH 17.2 % (0-14.5); WHITE BLOOD COUNT 18.7 10*3/uL (4.8-10.8)
[2017-12-03 18:45] VITALS: BP 106/59
[2017-12-03 18:45] LABS: ALBUMIN 2.2 gm/dl (3.1-4.5); ALKALINE PHOSPHATASE 557 U/L (45-117); BUN 26 mg/dl (7-24); CHLORIDE 103 mmol/L (98-107); CREATININE 0.42 mg/dL (0.55-1.02); POTASSIUM 4.2 mmol/L (3.5-5.1); SGOT/AST 26 IU/L (3-35); SGPT/ALT 32 U/L (12-78); SODIUM 138 mmol/L (136-145); TOTAL PROTEIN 9.1 gm/dL (6.4-8.2)
[2017-12-03 18:47] LABS: PLATELET SUFFICIENCY HIGH (NORMAL); TOTAL CELLS COUNTED 100 #CELLS
[2017-12-03 18:49] LABS: ROULEAUX SLIGHT
[2017-12-03] MEDS ORDERED: MAXIPIME1 GM IV (18:54)
[2017-12-03] MEDS ORDERED: Ipratropium Brom3 ML INH (18:55)
[2017-12-03] MEDS ORDERED: [UNRECOGNIZED DRUG - CODE] SQ (18:56)
[2017-12-03] MEDS ORDERED: HEPARIN 5,5000 UNIT/ SQ (18:57)
[2017-12-03] MEDS ORDERED: HUMULIN R500 UNIT/1 SQ (18:58)
[2017-12-03] MEDS ORDERED: FLAGYL500 MG IV (18:59)
[2017-12-03] MEDS ORDERED: MICONAZORB AF71 GM T (19:01)
[2017-12-03] MEDS ORDERED: OXYCODONE H5 MG/5 ML PEG (19:03)
[2017-12-03] MEDS ORDERED: SANDOSTATI500 MCG/1 SQ (19:03)
[2017-12-03] MEDS ORDERED: PANTOPRAZOLE SO40 MG PEG (19:04)
[2017-12-03 20:00] VITALS: BP 117/70
[2017-12-04] VITALS: BP 115/75
[2017-12-04 07:09] LABS: HEMATOCRIT 33.2 % (37.0-47.0); HEMOGLOBIN 10.7 g/dl (12.0-16.0); MEAN CELL VOLUME 108.1 fl (81.0-99.0); MEAN CORPUSCULAR HGB 34.9 pg (27.0-31.0); MEAN CORPUSCULAR HGB CONC 32.2 g/dl (33.0-37.0); MEAN PLATELET VOLUME 11.3 fl (9.6-12.3); PLATELET COUNT AUTOMATED 767 10*3/uL (130-400); RED BLOOD COUNT 3.07 10*6/uL (4.10-5.10); RED CELL DISTRI WIDTH 17.2 % (0-14.5); WHITE BLOOD COUNT 17.8 10*3/uL (4.8-10.8)
[2017-12-04 07:29] LABS: BUN 24 mg/dl (7-24); CHLORIDE 106 mmol/L (98-107); CREATININE 0.34 mg/dL (0.55-1.02); PHOSPHOROUS 4.1 mg/dL (2.5-4.9); POTASSIUM 3.7 mmol/L (3.5-5.1); SODIUM 139 mmol/L (136-145)
[2017-12-04 07:32] LABS: PLATELET SUFFICIENCY HIGH (NORMAL); TOTAL CELLS COUNTED 100 #CELLS
[2017-12-04 07:56] LABS: VITAMIN D, 25-HYDROXY 17.9 ng/mL (30-100)
[2017-12-04 08:00] VITALS: BP 149/77
[2017-12-04 12:00] VITALS: BP 153/80
[2017-12-04 16:00] VITALS: BP 125/69
[2017-12-04 20:00] VITALS: BP 125/59
[2017-12-05] VITALS (8 sets, daily range): BP systolic 127–164; BP diastolic 58–94
[2017-12-05 06:27] LABS: HEMATOCRIT 32.7 % (37.0-47.0); HEMOGLOBIN 10.6 g/dl (12.0-16.0); MEAN CELL VOLUME 107.9 fl (81.0-99.0); MEAN CORPUSCULAR HGB CONC 32.4 g/dl (33.0-37.0); MEAN PLATELET VOLUME 11.5 fl (9.6-12.3); PLATELET COUNT AUTOMATED 725 10*3/uL (130-400); RED BLOOD COUNT 3.03 10*6/uL (4.10-5.10); RED CELL DISTRI WIDTH 17.1 % (0-14.5); WHITE BLOOD COUNT 23.5 10*3/uL (4.8-10.8)
[2017-12-05 06:50] LABS: ALKALINE PHOSPHATASE 433 U/L (45-117); BUN 19 mg/dl (7-24); CHLORIDE 104 mmol/L (98-107); CREATININE 0.38 mg/dL (0.55-1.02); PHOSPHOROUS 2.5 mg/dL (2.5-4.9); POTASSIUM 3.4 mmol/L (3.5-5.1); SGOT/AST 30 IU/L (3-35); SGPT/ALT 26 U/L (12-78); SODIUM 135 mmol/L (136-145); TOTAL PROTEIN 7.6 gm/dL (6.4-8.2)
[2017-12-05 08:06] LABS: HOWELL-JOLLY BODIES FEW; PLATELET SUFFICIENCY HIGH (NORMAL); POLYCHROMASIA SLIGHT; TOTAL CELLS COUNTED 100 #CELLS
[2017-12-06] VITALS: BP 159/70
[2017-12-06 06:27] LABS: HEMOGLOBIN 10.5 g/dl (12.0-16.0); MEAN CELL VOLUME 107.5 fl (81.0-99.0); MEAN CORPUSCULAR HGB 34.2 pg (27.0-31.0); MEAN CORPUSCULAR HGB CONC 31.8 g/dl (33.0-37.0); MEAN PLATELET VOLUME 11.3 fl (9.6-12.3); PLATELET COUNT AUTOMATED 740 10*3/uL (130-400); RED BLOOD COUNT 3.07 10*6/uL (4.10-5.10); RED CELL DISTRI WIDTH 16.8 % (0-14.5)
[2017-12-06 06:40] LABS: BUN 18 mg/dl (7-24); CHLORIDE 105 mmol/L (98-107); CREATININE 0.33 mg/dL (0.55-1.02); SODIUM 136 mmol/L (136-145)
[2017-12-06 07:21] LABS: PLATELET SUFFICIENCY HIGH (NORMAL); ROULEAUX MODERATE; TOTAL CELLS COUNTED 100 #CELLS
[2017-12-06 08:00] VITALS: BP 137/70
[2017-12-06 08:12] LABS: IMMUNOGLOBULIN G, QNT 2496 mg/dL (700-1600); IMMUNOGLOBULIN M, QNT 80 mg/dL (26-217)
[2017-12-06 12:00] VITALS: BP 151/89
[2017-12-06 16:00] VITALS: BP 140/90
[2017-12-06 16:11] LABS: A/G RATIO 0.5 (0.7-1.7); ALBUMIN 2.3 g/dL (2.9-4.4); ALPHA-1-GLOBULIN 0.3 g/dL (0.0-0.4); BETA GLOBULIN 1.1 g/dL (0.7-1.3); GAMMA GLOBULIN 2.4 g/dL (0.4-1.8); GLOBULIN, TOTAL 4.7 g/dL (2.2-3.9); M-SPIKE Not Observed g/dL (Not Observed)
[2017-12-06 20:00] VITALS: BP 149/69
[2017-12-07] VITALS: BP 159/86
[2017-12-07 08:00] VITALS: BP 163/83
[2017-12-07 08:06] LABS: BASO # 0.1 10*3/uL (0.0-0.1); BASO % 0.4 % (0.0-1.0); EOS # 0.1 10*3/uL (0.0-0.4); EOS % 0.8 % (1.0-4.0); HEMATOCRIT 32.4 % (37.0-47.0); HEMOGLOBIN 10.4 g/dl (12.0-16.0); LYMPH # 2.1 10*3/uL (1.3-4.4); LYMPH % 12.6 % (27.0-41.0); MEAN CELL VOLUME 106.6 fl (81.0-99.0); MEAN CORPUSCULAR HGB 34.2 pg (27.0-31.0); MEAN CORPUSCULAR HGB CONC 32.1 g/dl (33.0-37.0); MEAN PLATELET VOLUME 11.2 fl (9.6-12.3); MONO # 1.5 10*3/uL (0.1-1.0); MONO % 8.8 % (3.0-9.0); NEUT # 12.9 10*3/uL (2.3-7.9); NEUT % 76.6 % (47.0-73.0); PLATELET COUNT AUTOMATED 711 10*3/uL (130-400); RED BLOOD COUNT 3.04 10*6/uL (4.10-5.10); RED CELL DISTRI WIDTH 16.8 % (0-14.5); WHITE BLOOD COUNT 16.8 10*3/uL (4.8-10.8)
[2017-12-07 08:18] LABS: BUN 17 mg/dl (7-24); CHLORIDE 104 mmol/L (98-107); CREATININE 0.34 mg/dL (0.55-1.02); POTASSIUM 2.7 mmol/L (3.5-5.1); SODIUM 135 mmol/L (136-145)
[2017-12-07 12:00] VITALS: BP 146/77
[2017-12-07 15:07] LABS: ALBUMIN, URINE 24.6 % (.); ALPHA-1-GLOBULIN, URINE 4.1 % (.); ALPHA-2-GLOBULIN, URINE 14.3 % (.); BETA GLOBULIN, URINE 30.1 % (.); GAMMA GLOBULIN, URINE 26.9 % (.); M-SPIKE, % Comment: % (Not Observed); PROTEIN,TOTAL - URINE RANDOM 107.8 mg/dL (Not Estab.)
[2017-12-07 16:00] VITALS: BP 148/65
[2017-12-07 20:00] VITALS: BP 158/82
[2017-12-08] VITALS: BP 149/85
[2017-12-08 06:20] LABS: BASO # 0.1 10*3/uL (0.0-0.1); BASO % 0.5 % (0.0-1.0); EOS # 0.2 10*3/uL (0.0-0.4); EOS % 0.9 % (1.0-4.0); HEMATOCRIT 31.5 % (37.0-47.0); HEMOGLOBIN 10.6 g/dl (12.0-16.0); LYMPH # 1.8 10*3/uL (1.3-4.4); LYMPH % 9.2 % (27.0-41.0); MEAN CELL VOLUME 104.3 fl (81.0-99.0); MEAN CORPUSCULAR HGB 35.1 pg (27.0-31.0); MEAN CORPUSCULAR HGB CONC 33.7 g/dl (33.0-37.0); MEAN PLATELET VOLUME 10.8 fl (9.6-12.3); MONO # 1.5 10*3/uL (0.1-1.0); MONO % 7.8 % (3.0-9.0); NEUT # 15.6 10*3/uL (2.3-7.9); NEUT % 80.8 % (47.0-73.0); PLATELET COUNT AUTOMATED 753 10*3/uL (130-400); RED BLOOD COUNT 3.02 10*6/uL (4.10-5.10); RED CELL DISTRI WIDTH 16.9 % (0-14.5); WHITE BLOOD COUNT 19.4 10*3/uL (4.8-10.8)
[2017-12-08 06:39] LABS: BUN 13 mg/dl (7-24); CHLORIDE 105 mmol/L (98-107); CREATININE 0.32 mg/dL (0.55-1.02); POTASSIUM 3.3 mmol/L (3.5-5.1); SODIUM 135 mmol/L (136-145)
[2017-12-08 08:00] VITALS: BP 149/78
[2017-12-08 12:00] VITALS: BP 145/79
[2017-12-08 16:00] VITALS: BP 142/74
[2017-12-08 20:00] VITALS: BP 129/70
[2017-12-09] VITALS: BP 136/75
[2017-12-09 06:43] LABS: HEMATOCRIT 33.3 % (37.0-47.0); HEMOGLOBIN 10.8 g/dl (12.0-16.0); MEAN CELL VOLUME 105.4 fl (81.0-99.0); MEAN CORPUSCULAR HGB 34.2 pg (27.0-31.0); MEAN CORPUSCULAR HGB CONC 32.4 g/dl (33.0-37.0); MEAN PLATELET VOLUME 10.9 fl (9.6-12.3); PLATELET COUNT AUTOMATED 754 10*3/uL (130-400); RED BLOOD COUNT 3.16 10*6/uL (4.10-5.10); RED CELL DISTRI WIDTH 16.7 % (0-14.5); WHITE BLOOD COUNT 25.2 10*3/uL (4.8-10.8)
[2017-12-09 07:11] LABS: BUN 10 mg/dl (7-24); CHLORIDE 105 mmol/L (98-107); CREATININE 0.42 mg/dL (0.55-1.02); POTASSIUM 3.2 mmol/L (3.5-5.1); SODIUM 136 mmol/L (136-145)
[2017-12-09 07:50] LABS: OVALOCYTES MODERATE; PLATELET SUFFICIENCY HIGH (NORMAL); TOTAL CELLS COUNTED 100 #CELLS
[2017-12-09 08:00] VITALS: BP 146/76
[2017-12-09 12:00] VITALS: BP 136/77
[2017-12-09 16:00] VITALS: BP 141/76
[2017-12-09 20:00] VITALS: BP 152/84
[2017-12-10] VITALS: BP 145/77
[2017-12-10 08:00] VITALS: BP 149/77
[2017-12-10 12:00] VITALS: BP 135/71
[2017-12-10 16:00] VITALS: BP 120/69
[2017-12-10 20:00] VITALS: BP 128/74
[2017-12-11] VITALS: BP 140/74
== END 2017-12-11 01:53 | disposition short-term general hospital (02) | DRG 673 ==
LOC: ED 11:01 → 5E 18:01 → EDHOLD 18:01 → 5E 18:43
PROVIDERS: Internal Medicine; Nurse Practitioner Family; Student in an Organized Health Care Education/Training Program
PROC: 0D20XUZ Change Feeding Device in Upper Intestinal Tract, External Approach (ICD-10-PCS; 2017-12-03)
PROC: 0DB68ZX Excision of Stomach, Via Natural or Artificial Opening Endoscopic, Diagnostic (ICD-10-PCS; principal; 2017-12-05)
PROC: BD11YZZ Fluoroscopy of Esophagus using Other Contrast (ICD-10-PCS; 2017-12-06)
PROC: 0JB70ZZ Excision of Back Subcutaneous Tissue and Fascia, Open Approach (ICD-10-PCS; 2017-12-07)
DX: T83.511A Infection and inflammatory reaction due to indwelling urethral catheter, initial encounter (principal); A41.9 Sepsis, unspecified organism; E43 Unspecified severe protein-calorie malnutrition; L89.154 Pressure ulcer of sacral region, stage 4; K68.19 Other retroperitoneal abscess; K29.71 Gastritis, unspecified, with bleeding; K26.4 Chronic or unspecified duodenal ulcer with hemorrhage; N13.30 Unspecified hydronephrosis; K94.23 Gastrostomy malfunction; K86.3 Pseudocyst of pancreas; K86.0 Alcohol-induced chronic pancreatitis; D47.3 Essential (hemorrhagic) thrombocythemia; E83.42 Hypomagnesemia; E86.0 Dehydration; A49.1 Streptococcal infection, unspecified site; Z16.21 Resistance to vancomycin; S31.109A Unspecified open wound of abdominal wall, unspecified quadrant without penetration into peritoneal cavity, initial encounter; Y83.9 Surgical procedure, unspecified as the cause of abnormal reaction of the patient, or of later complication, without mention of misadventure at the time of the procedure; R31.29 Other microscopic hematuria; N39.0 Urinary tract infection, site not specified; F10.10 Alcohol abuse, uncomplicated; Y82.9 Unspecified medical devices associated with adverse incidents; R13.10 Dysphagia, unspecified; F17.210 Nicotine dependence, cigarettes, uncomplicated; X58.XXXA Exposure to other specified factors, initial encounter; J41.0 Simple chronic bronchitis; I10 Essential (primary) hypertension; N39.3 Stress incontinence (female) (male); N39.41 Urge incontinence; E53.8 Deficiency of other specified B group vitamins; Z98.891 History of uterine scar from previous surgery; Y92.89 Other specified places as the place of occurrence of the external cause; Z88.1 Allergy status to other antibiotic agents; Z83.3 Family history of diabetes mellitus; Z82.61 Family history of arthritis; Z71.6 Tobacco abuse counseling; Y93.89 Activity, other specified; Y99.8 Other external cause status; Z79.4 Long term (current) use of insulin; Z79.899 Other long term (current) drug therapy; Z90.81 Acquired absence of spleen; Z68.22 Body mass index [BMI] 22.0-22.9, adult

== ENCOUNTER → 2018-01-27 | Outpatient (CLI) | payer OTHER ==
[~2018-01-27] MED LIST changes: +FLAGYL500 MG IV; +HEPARIN 5,5000 UNIT/ SQ; +HUMULIN R500 UNIT/1 SQ; +Ipratropium Brom3 ML INH; +MAXIPIME1 GM IV; +MICONAZORB AF71 GM T; +OXYCODONE H5 MG/5 ML PEG; +PANTOPRAZOLE SO40 MG PEG; +SANDOSTATI500 MCG/1 SQ; +[UNRECOGNIZED DRUG - CODE] SQ
== END | disposition home or self-care (01) ==
LOC: CT 09:00
DX: K85.20 Alcohol induced acute pancreatitis without necrosis or infection (principal); R18.8 Other ascites

== ENCOUNTER 2018-02-14 14:25 | Inpatient (IN) | payer OTHER ==
[~2018-02-14] VITALS: Ht 157.5 cm; Wt 57.8 kg
--- NOTE | ~2018-02-14 | CON ---
[place], [place] REPORT OF CONSULTATION NAME: ELLE KELLER UNIT #: [id number] ROOM: [facility] DOCTOR: SUE MEYER MD BIRTHDATE: [birth year] DOS: 02/16/2018 REASON FOR CONSULTATION: VRE in the urine. CHIEF COMPLAINT: Fever, chills, sore throat. HISTORY OF PRESENTING ILLNESS: This is a 62-year-old female with a complicated past medical history of alcoholic pancreatitis with intraabdominal surgery at [facility]. DICTATION ENDS HERE Sue Meyer MD CM:CONSTR:REPORT OF CONSULTATION 0925 02/17/18 0420 interface
--- NOTE | ~2018-02-14 | EKG ---
[place], [place] ELECTROCARDIOGRAM REPORT NAME: ELLE KELLER UNIT #: [id number] ROOM: [facility] DOCTOR: BRADLY DRAFT REPORT BIRTHDATE: [address] [facility] Test Date: 2018-02-14 Test Time: 14:50:24 Pat Name: ELLE KELLER Department: Room: [facility] Gender: F Provisioning Specialist: NICKOLAS : 1955 Requested By: YAQUELIN ST Order Number: [id number] Reading MD: Guru Figueroa MD Measurements Intervals [place] Rate: 123 P: 78 MA: 145 QRS: 67 QRSD: 84 T: 70 QT: 301 QTc: 431 Interpretive Statements Sinus tachycardia Borderline repolarization abnormality Baseline wander in lead(s) V5 Compared to ECG 09/11/2017 16:21:41 Sinus rhythm no longer present Electronically Signed On 02-16-2018 8:26:47 PST by Guru Figueroa MD CM:EKGRPT:ELECTROCARDIOGRAM REPORT 1450 0826 YAQUELIN TURNER DRAFT REPORT YAQUELIN ST DO
--- NOTE | ~2018-02-14 | CON ---
[place], [place] REPORT OF CONSULTATION NAME: ELLE KELLER UNIT #: [id number] ROOM: [facility] DOCTOR: CAILIN MEYER MD BIRTHDATE: [birth year] DOS: HISTORY OF PRESENT ILLNESS: The patient had a complicated intra-abdominal surgery and it was found that she had pseudocyst, and was recommended there to have a followup surgery, but the patient could not followup. For her intra-abdominal sepsis, she was treated with cefepime, metronidazole for 4 weeks, and back in 11/2017 when I saw the patient, she has also VRE in her urine for which she was treated with linezolid. She had a prolonged course of hospitalization and she was sent back to [facility] and her followup record is not available. I do see her abdomen CT done on 01/27/2018 that shows small fluid collection around the pancreas, air fluid level in biliary tract, right-sided nephrostomy tube and coincidental finding of right adrenal mass. At this time, the patient had a sore throat that started a week ago with fever, chills that brought her to the hospital. On presentation, she was febrile. Her white count was high at 33.1 which is 17.1 today. Her ESR is high at 119. Her blood cultures / bottles from 02/14/2018 are having GPC in pairs and chains. Her UA from nephrostomy tube shows pyuria, and urine cultures show growth of VRE, which is ampicillin susceptible. Currently, the patient is on daptomycin plus meropenem. Chest x-ray has been obtained in the ER for her shortness of breath that shows no acute process. There is no respiratory viral panel done. PAST MEDICAL HISTORY: As mentioned above. PAST SURGICAL HISTORY: Significant for splenectomy, , history of nephrostomy. SOCIAL HISTORY: One and half pack a day for 48 years. Social alcohol abuse. No illicit drug use. FAMILY HISTORY: Father , had history of prostate problems, heart disease. Mother history of rheumatoid arthritis, hypoglycemia. ALLERGIES: LEVAQUIN CAUSES RASH. HOME MEDICATIONS: Reviewed. REVIEW OF SYSTEMS: A 12-point review of systems has been done. Pertinent negative or positive included in HPI, rest are noncontributory. PHYSICAL EXAMINATION: CURRENT VITAL SIGNS: Include temperature of 98.0, pulse rate 78, respiratory rate 21, blood pressure 131/74, and oxygen saturation 96% on room air. GENERAL: The patient is alert, oriented x 3, not in acute distress. HEENT: Atraumatic, normocephalic. PERRLA. EOMI. Oropharynx, posterior pharyngeal wall erythema, no exudate, no thrush. CARDIOVASCULAR: S1, S2 normal. Tachycardic. [place], [place] REPORT OF CONSULTATION NAME: ELLE KELLER UNIT #: [id number] ROOM: [facility] DOCTOR: BETSY HOBBS,[facility] BIRTHDATE: [birth year] CHEST: Air entry bilaterally equal. Expiratory wheezing bilateral lungs. ABDOMEN: Soft, nontender, nondistended. The right lower quadrant mucous fistula, no drainage. Right-sided nephrostomy tube area tender to palpation. EXTREMITIES: No pedal edema. SKIN: There is a right arm PICC line, which has been there since last 3 months. No exit site erythema. LABORATORY DATA AND IMAGING: Reviewed and mentioned in HPI. ASSESSMENT AND PLAN: 1. GPC bacteremia, likely VRE, urinary source from PICC line versus intra-abdominal. 2. Suspected urinary tract infection from nephrostomy tube. 3. Post-viral illness. 4. History of alcoholic pancreatitis with pseudocyst, drained, treated with 4 weeks of antibiotics in November including cefepime, metronidazole. PLAN: 1. At this time, patient has GPC in chains and pairs, which could be her VRE from urinary source. She definitely has tenderness around her flank, and she has pyuria in her urine, I would do CT abdomen and pelvis without contrast also to look for intra-abdominal sepsis. 2. Agree to discontinue the PICC line and send the tip for cultures. 3. Follow the repeat blood cultures. 4. Continue daptomycin for now. In the next 24 hours if there is no gram negative growth, discontinue meropenem. 5. Pu the patient in droplet isolation. Check for rapid influenza testing. 6. The patient has been followed by Infectious Disease doctor at [facility] who was giving her antibiotics last month as well, which has been stopped for the last 2 weeks. Would obtain the records. 7. If there is a urological complication, would refer her to [facility] where her nephrostomy tubes were managed. Discussed with the ICU resident. Thank you for your consult. Please call for any questions. Cailin Meyer MD CM:CONSTR:REPORT OF CONSULTATION 0934 02/17/18 0838 interface
[2018-02-14 14:29] VITALS: BP 103/56
[2018-02-14 14:53] LABS: HEMOGLOBIN 11.6 g/dl (12.0-16.0); MEAN CELL VOLUME 95.5 fl (81.0-99.0); MEAN CORPUSCULAR HGB 32.6 pg (27.0-31.0); MEAN CORPUSCULAR HGB CONC 34.1 g/dl (33.0-37.0); MEAN PLATELET VOLUME 11.8 fl (9.6-12.3); PLATELET COUNT AUTOMATED 376 10*3/uL (130-400); RED BLOOD COUNT 3.56 10*6/uL (4.10-5.10); RED CELL DISTRI WIDTH 15.6 % (0-14.5); WHITE BLOOD COUNT 33.1 10*3/uL (4.8-10.8)
[2018-02-14 15:04] LABS: ACT PARTIAL THROMBO TIME 25.5 SECONDS (20.8-31.5); INTERNATIONAL NORM RATIO 1.1 (2.0-3.5)
--- NOTE | 2018-02-14 15:07 | NUR ---
SPEAKING WITH PATIENT SHE COMPLAINS OF FEVER SINCE TUESDAY. STATES SHE WAS TOLD THIS MORNING SHE HAS VRE OF THE URINE. STATES SHE WAS ALSO TOLD TUESDAY AND HAS A STAPH INFECTION TO AREA WHERE LEFT NEPHROSTOMY TUBE CAME OUT. STATES THE TUBE HAS BEEN OUT FOR APPROX 45 DAYS. STATES THEY AREN'T PUTTING IT BACK IN. PT DOES HAVE RIGHT TUBE IN THE SIDE. NOT THE BACK. IT IS DRAINING DARK YELLOW URINE AT THIS TIME. PT COMPLAINS OF FEELING OVERALL "LIKE CRAP" STATES SHE HAS FOR 4 DAYS. LIPS APPEAR DRY. ASKING FOR WATER. NS IS RUNNING THROUGH PICC IN RIGHT UPPER ARM. NOT DEPENDENT ON OXYGEN BUT HAS 2L NC AT THIS TIME. HAS WOUND TO COCCYX THAT IS BEING TREATED BY WOUND CARE ON THURSDAYS BUT IS TREATED BY STAFF EVERY MORNING.
[2018-02-14 15:12] VITALS: BP 95/53
[2018-02-14 15:12] LABS: ALKALINE PHOSPHATASE 767 U/L (45-117); BUN 33 mg/dl (7-24); CHLORIDE 98 mmol/L (98-107); CREATININE 0.66 mg/dL (0.55-1.02); LIPASE 173 U/L (73-393); PLATELET SUFFICIENCY NORMAL (NORMAL); POTASSIUM 4.1 mmol/L (3.5-5.1); SGOT/AST 47 IU/L (3-35); SGPT/ALT 75 U/L (12-78); SODIUM 133 mmol/L (136-145); TOTAL CELLS COUNTED 100 #CELLS; TOTAL PROTEIN 8.3 gm/dL (6.4-8.2); TROPONIN I < 0.015 ng/ml (<0.045)
[2018-02-14 15:13] LABS: TARGET CELLS FEW
[2018-02-14 15:21] LABS: BILIRUBIN NEGATIVE (NEGATIVE); BLOOD 3+ (NEGATIVE); CLARITY CLOUDY (CLEAR); COLOR YELLOW (YELLOW); GLUCOSE NEGATIVE (NEGATIVE); KETONE NEGATIVE (NEGATIVE); LEUKO ESTERASE 2+ (NEGATIVE); NITRITE NEGATIVE (NEGATIVE); SPECIFIC GRAVITY 1.025 (1.005-1.030); UROBILINOGEN 0.2 E.U./dl (0.2-1.0)
[2018-02-14 15:28] LABS: BACTERIA 2+; CALCIUM OXALATE CRYSTALS 1+; RBC TNTC rbc/hpf (0-2); WBC TNTC wbc/hpf (0-5); YEAST 3+
[2018-02-14] MEDS ORDERED: AMOXICILLIN500 M2 PO (15:34)
[2018-02-14] MEDS ORDERED: TYLENOL325 M1 PO (15:34)
[2018-02-14] MEDS ORDERED: APLISOL5 TUB UNIT IC (15:35)
[2018-02-14] MEDS ORDERED: SEPTDS PO (15:36)
[2018-02-14] MEDS ORDERED: DULCOLAX10 M1 R (15:36)
[2018-02-14] MEDS ORDERED: Ipratropium Brom3 ML INH (15:38)
[2018-02-14] MEDS ORDERED: [UNRECOGNIZED DRUG - CODE] SC (15:38)
[2018-02-14] MEDS ORDERED: Duragesic 25 M25 MCG TD (15:39)
[2018-02-14] MEDS ORDERED: FLEET ENEMA 13133 ML R (15:40)
[2018-02-14] MEDS ORDERED: FLORASTOR250 MG PO (15:40)
[2018-02-14] MEDS ORDERED: HEPARIN SO5000 UNIT4 IV (15:41)
[2018-02-14] MEDS ORDERED: HUMULIN R500 UNIT/1 SQ (15:42)
[2018-02-14] MEDS ORDERED: MILK OF MA400 MG/5 M PO (15:43)
[2018-02-14] MEDS ORDERED: OXYCODONE H5 MG/5 ML PO (15:44)
[2018-02-14] MEDS ORDERED: OCTREOTIDE500 MCG/2 SC (15:44)
[2018-02-14] MEDS ORDERED: PROTONIX40 M2 PO (15:45)
[2018-02-14 16:40] VITALS: BP 101/56
[2018-02-14 17:40] VITALS: BP 93/45
--- NOTE | 2018-02-14 17:40 | NUR ---
A 63, admitted to ICCU, under the services of INDIA Roman DO with a diagnosis of UTI,VRE INFECTION, AND SEVERE SEPSIS. Chief complaint is SENT FROM [facility] FOR VRE INFECTION AND FEVERS.. Patient arrived via stretcher from ER. Monitor applied. Initial assessment completed. Vital signs taken and recorded. INDIA ROMAN DO notified of admission to the unit. Orders received. See assessment for past medical history, medications and allergies. Patient and/or family oriented to unit. [facility] ICCU visitation policy reviewed. Clothing/patient valuable form completed. ARON MAYA
[2018-02-14 20:00] VITALS: BP 100/55
--- NOTE | 2018-02-14 20:03 | NUR ---
PT. RESTING IN BED, STATES GENERALIZED WOUND PAIN, GIVEN NORCO ORDERED AT 1950. IVF BOLUS CONTINUES FROM ER. ABDOMEN SOFT, NONDISTENDED AND NORMO, EMACIATED. ABD DRESSING HAS SMALL AMT OF PURULENT FOUL SMELLING DRAINAGE COMING FROM WOUND SITE, DRESSING CHANGED PRIOR TO SHIFT CHANGE. PICC IN RIGHT UPPER ARM INTACT. NEPHROSTOMY FUENTES DRAINING A CLOUDY YELLOW URINE. LUNGS CLEAR BILAT. NO PERIPHERAL EDEMA NOTED, KNEE HIGH LOUISE HOSE ON BILAT. COCCYX AND FLANK WOUND NOT VIEWED AT THIS TIME DRESSING WAS CHANGED PRIOR TO SHIFT. BOTH ARE D/I. JASON WINN,
--- NOTE | 2018-02-14 20:26 | NUR ---
PT. STATED NORCO EFFECTIVE FOR PAIN.
--- NOTE | 2018-02-14 23:52 | NUR ---
PT. GIVEN NORCO AT 2350 FOR BREATHTHROUGH PAIN. JASON WINN RN
[2018-02-15] VITALS: BP 109/62
[2018-02-15 04:00] VITALS: BP 100/56
--- NOTE | 2018-02-15 04:19 | NUR ---
PT. GIVEN NORCO AT 0405 ORDERED FOR COMPLAINTS OF GENERALIZED PAIN AND DISCOMFORT, STATED PRIOR NORCO WAS EFFECTIVE. JASON WINN RN
[2018-02-15 05:42] LABS: ALBUMIN 1.7 gm/dl (3.1-4.5); ALKALINE PHOSPHATASE 645 U/L (45-117); BUN 29 mg/dl (7-24); CHLORIDE 102 mmol/L (98-107); CHOLESTEROL 87 mg/dL (<200); HDL CHOLESTEROL 11 mg/dl (40-60); LDL CHOLESTEROL 32 mg/dL (9-159); PHOSPHOROUS 3.3 mg/dL (2.5-4.9); POTASSIUM 3.7 mmol/L (3.5-5.1); SGOT/AST 37 IU/L (3-35); SGPT/ALT 64 U/L (12-78); SODIUM 135 mmol/L (136-145); TOTAL PROTEIN 7.3 gm/dL (6.4-8.2); TRIGLYCERIDES 221 mg/dl (<150); VLDL CHOLESTEROL 44 mg/dL (6-40)
--- NOTE | 2018-02-15 05:42 | NUR ---
PT. SLEEPING, NORCO EFFECTIVE.
[2018-02-15 05:51] LABS: HEMATOCRIT 30.8 % (37.0-47.0); HEMOGLOBIN 9.8 g/dl (12.0-16.0); MEAN CELL VOLUME 97.2 fl (81.0-99.0); MEAN CORPUSCULAR HGB 30.9 pg (27.0-31.0); MEAN CORPUSCULAR HGB CONC 31.8 g/dl (33.0-37.0); MEAN PLATELET VOLUME 12.8 fl (9.6-12.3); PLATELET COUNT AUTOMATED 340 10*3/uL (130-400); RED BLOOD COUNT 3.17 10*6/uL (4.10-5.10); RED CELL DISTRI WIDTH 15.8 % (0-14.5); WHITE BLOOD COUNT 27.6 10*3/uL (4.8-10.8)
--- NOTE | 2018-02-15 05:56 | NUR ---
DR. APPIAH NOTIFIED OF POSITIVE BLOOD CULTURES, JASON WINN RN
[2018-02-15 06:14] LABS: INTERNATIONAL NORM RATIO 1.1 (2.0-3.5)
[2018-02-15 06:27] LABS: PLATELET SUFFICIENCY NORMAL (NORMAL); TARGET CELLS FEW; TOTAL CELLS COUNTED 100 #CELLS; VACUOLATION OF NEUTROPHILS SLIGHT
[2018-02-15 08:00] VITALS: BP 110/58
--- NOTE | 2018-02-15 09:00 | NUR ---
Double Surface Operator in to see patient. She is currently at [facility] and would like to return there upon discharge. internet media planner following.
[2018-02-15 09:11] LABS: VITAMIN D, 25-HYDROXY 18.8 ng/mL (30-100)
--- NOTE | 2018-02-15 11:45 | NUR ---
Occupational Therapy evaluation completed in ICCU with full eval to follow. Precautions include fall risk; bed alarm, ICCU, nephrostomy tube, acute debility. Patient is high complexity level 83889 via testing, chart review and evaluation. Recommend OT per POC and SNF to enable return home. Thank you. Kaya White OTR/l
--- NOTE | 2018-02-15 11:52 | NUR ---
PHYSICAL THERAPY PAtient evaluated in ICCU, full evaluation to follow. Continue with PT as per plan of care with fall, nephrostomy tube, acute debility and mod (A) + precautions. Will require return to SNF. PAtient is high complexity via chart review, tests and evaluation:L [id number]. Thank you for this referral. Viridiana Gifford,PT
[2018-02-15 12:00] VITALS: BP 101/50
--- NOTE | 2018-02-15 14:27 | NUR ---
ELLE KELLER [id number] Please refer to the physician's history and physical for past medical history, comorbid conditions, and allergies. Diagnosis: UTI, VRE INFECTION, SEVERE SEPSIS Kojo Score: 14,MODERATE RISK WOUND DESCRIPTIONS: Location of the wound: right lower abdomen Type of wound: surigcal Thickness: Full Size: 0.5cm x 1.0cm x 2.1cm Tunneling: none Undermining: none Sinus Tract: none Presence of Exudate: Purulent Amount: Heavy Color: Yellow, red Odor: Foul Periwound Skin Appearance: Scar Wound edges: approximated Pain (associated with wound): tender to touch How does patient state this happened? patient stated she has had this for a while and is unsure how long Location of the wound: left lower back (left hip) Type of wound: stage 3 Thickness: Full Size: 0.3cm x 0.2cm x <0.1cm Tunneling: none Undermining: none Sinus Tract: none Presence of Exudate: Serosanguineous Amount: Light Color: Yellow Odor: None Periwound Skin Appearance: Erythema Wound edges: approximated Pain (associated with wound): none at time of assessment How does patient state this happened? patient stated she has had this for a while and is unsure how long Location of the wound: coccyx Type of wound: stage 4 Thickness: Full Size: 3.3cm x 1.8cm x 0.7cm Tunneling: none Underminin.7cm x 10 o'clock- 1 o'clock Sinus Tract: none Presence of Exudate: Serosanguineous Amount: Light Color: Yellow, red Odor: None Periwound Skin Appearance: Erythema Wound edges: approximated Pain (associated with wound): tender to touch How does patient state this happened? patient stated she has had this for a while and is unsure how long Location of the wound: left wrist Type of wound: skin tear Thickness: Partial Size: 1.0cm x 0.2cm x 0.1cm Tunneling: none Undermining: none Sinus Tract: none Presence of Exudate: Serosanguineous Amount: Light Color: Red Odor: None Periwound Skin Appearance: Normal Wound edges: approximated Pain (associated with wound): none at time of assessment How does patient state this happened? pt is unaware that she even had this area Surface the patient is resting on: Isoflex SKIN PREVENTION RECOMMENDATION: 1. Pressure redistribution support surface as appropriate 2. Elevate heels 3. Remove boots/TEDS every shift and reapply 4. Head of bed 30 degrees as tolerated 5. Assess nutrition and hydration 6. Manage moisture 7. Avoid the use of containment devices while in bed 8. Use absorptive products on surfaces limit layers of linens on bed 9. Turn and reposition every 1-2 hours in bed and every 1 hour in chair as tolerated 10. Weight shifts every 15 minutes while up in chair 11. Offloading with pillows or device to keep heels elevated off bed 12. Monitor skin at least every shift 13. Inspect under medical devices twice a day WOUND TREATMENT RECOMMENDATIONS: Consult Dr. Singer for area to right lower abdomen and possible debridement to left hip and coccyx. Wheelchair cushion when oob. Heel raiser pro boots while in bed D/C stage 3&4 guidelines to coccyx Full thickness guidelines: Cleanse coccyx and right lower abdomen with nss and apply sureprep around the wound therahoney to wound bed light pack with maxorb rope then cover with optifoam gentle. Full thickness guidelines: Cleanse left hip with nss and apply sureprep around the wound therahoney to wound bed and cover with optifoam gentle. Skin tear guidelines: cleanse left wrist with nss and apply sureprep around the wound hydrogel to wound bed and cover with optifoam gentle. Wound culture to right lower abdomen and coccyx.
--- NOTE | 2018-02-15 14:36 | NUR ---
Recommend follow up for wound care in outpatient setting patient being discharge to another facility at this time.
--- NOTE | 2018-02-15 15:09 | NUR ---
Dr. Presley notified of wound care recommendations.
[2018-02-15 16:00] VITALS: BP 108/58
--- NOTE | 2018-02-15 19:20 | NUR ---
CHART CHECK COMPLETE.
[2018-02-15 20:00] VITALS: BP 128/74
--- NOTE | 2018-02-15 21:25 | NUR ---
RESTORIL GIVEN PER PT REQUEST FOR SLEEP AND KAREN CARE DONE FOR INCONTINENCE OF SMALL AMT OF URINE. FREQUENT REPOSITIONING/TURNING Q1-2 HOURS.
--- NOTE | 2018-02-15 22:52 | NUR ---
RESTORIL EFFECTIVE...PT SLEEPING WITH EVEN, UNLABORED RESPIRATIONS.
[2018-02-16] VITALS: BP 127/68
--- NOTE | 2018-02-16 03:06 | NUR ---
NORCO WAS FROM 0030 WAS EFFECTIVE FOR PAIN...PT DOZING. BODY RELAXED.
[2018-02-16 04:00] VITALS: BP 136/79
--- NOTE | 2018-02-16 05:12 | NUR ---
PERICARE DONE FOR INCONTINENCE OF URINE. ALSO NORCO GIVEN PER PT REQUEST WITH SIPS OF WATER. PT POSITIONED TO SIDE. BOOTS OFF PER PT REQUEST.
[2018-02-16 05:48] LABS: ALBUMIN 1.7 gm/dl (3.1-4.5); ALKALINE PHOSPHATASE 679 U/L (45-117); CHLORIDE 107 mmol/L (98-107); CREATININE 0.46 mg/dL (0.55-1.02); PHOSPHOROUS 2.7 mg/dL (2.5-4.9); POTASSIUM 4.1 mmol/L (3.5-5.1); SGOT/AST 29 IU/L (3-35); SGPT/ALT 57 U/L (12-78); SODIUM 137 mmol/L (136-145); TOTAL PROTEIN 6.9 gm/dL (6.4-8.2)
[2018-02-16 05:50] LABS: HEMATOCRIT 30.4 % (37.0-47.0); HEMOGLOBIN 9.8 g/dl (12.0-16.0); MEAN CELL VOLUME 97.1 fl (81.0-99.0); MEAN CORPUSCULAR HGB 31.3 pg (27.0-31.0); MEAN CORPUSCULAR HGB CONC 32.2 g/dl (33.0-37.0); MEAN PLATELET VOLUME 12.2 fl (9.6-12.3); PLATELET COUNT AUTOMATED 437 10*3/uL (130-400); RED BLOOD COUNT 3.13 10*6/uL (4.10-5.10); WHITE BLOOD COUNT 17.1 10*3/uL (4.8-10.8)
[2018-02-16 06:15] LABS: BUN 19 mg/dl (7-24)
[2018-02-16 06:39] LABS: TOTAL CELLS COUNTED 100 #CELLS
[2018-02-16 06:40] LABS: HOWELL-JOLLY BODIES FEW; PLATELET SUFFICIENCY HIGH (NORMAL); POLYCHROMASIA SLIGHT
--- NOTE | 2018-02-16 06:47 | NUR ---
KAREN CARE DONE FOR LG AMT OF BROWN STICKY STOOL.
--- NOTE | 2018-02-16 06:56 | NUR ---
DR ARMANDO SEES PT AND VIEWS COCCYX WOUND....NO SURGICAL INTERVENTION NECESSARY.
--- NOTE | 2018-02-16 07:30 | NUR ---
Patient updated clinicals and therapy evals faxed to [facility] [place] for review. Patient is short term and requires precert to return.
[2018-02-16 08:00] VITALS: BP 131/74
--- NOTE | 2018-02-16 09:00 | NUR ---
Assistant Corporate Controller in to see patient. No new needs or request at this time. When medically stable and precert is obtained she will be discharged to [facility]. associate media planner following.
--- NOTE | 2018-02-16 09:41 | NUR ---
DR ARMANDO CONSULTED FOR ABD WOUND AND WILL BE UP TO SEE AFTER SURGERY. ABD DRESSING PACKED WITH MAXSORB AND OPTIFOAM APPLIED. DR MEYER IN FOR CONSULT AND PLACED PT IN DROPLET ISOLATION UNTIL FLU RULED OUT. RAPID FLU CULTURE SENT AND COLLECTED IN COMPUTER.
--- NOTE | 2018-02-16 10:59 | NUR ---
OT NOTE Pt was seen this A.M. 1:1 for 24 minute OT session. Upon arrival pt was supine in bed, pt identified by name and . Pt had no complaints at this time. pt transferred supine to sit EOB with modA with education on use of bed rails. While sitting EOB pt doffed and donned gown with modA. Pt completed multiple sit to stand transfers from bed level with Pat X 2 and use of w/w for UE support. Challenged pt's static standing tolerance needed for increased I and enhanced safety in self care tasks and functional transfers, pt was able to tolerate aprox 60 secnds, 70 sec, and 30 seconds before sitting due to fatigue. Extra time given throughout session to allow for alow rate of performance. Pt was left sitting upright in recliner with call light in hand, tray table in place, and body alarm on for safety. Continue with rec D/C plan to return to SNF. OLIMPIA Brice/Deysi
[2018-02-16 11:47] VITALS: BP 136/75
--- NOTE | 2018-02-16 13:12 | NUR ---
Wound Care Recommendations: D/C stage 2 guidelines.
--- NOTE | 2018-02-16 13:54 | NUR ---
PHYSICAL THERAPY TREATMENT TIME: 11:30 PM Patient presented to therapy in supine with head of bed elevated and report of not feeling well. Patient agrees to therapy session. Patient was identified by name and . Patient performed transfer supine to sitting at EOB with verbal cues for rolling to L side and pushing off bed railing with R HAND and L ELBOW with MOD A X 2. Patient transferred STS with MOD X 2. PATIENT AMBULATED WITH W/W and CGA X 2 for 15' x 1 with IV pole in TOW and verbal cues for upright posutre and locking knees. Patient transferred ot bedside chair with MIN A X 1. Patient was left in bedside chair with LEs raised, call light within reach and chair alarm attached and activated. Patient tolerated treatment well with minimal SOB and NO LOB. Patient was 1:[address] MAGISTRATE for 16 minutes total. LG JACOB [address] MAGISTRATE
--- NOTE | 2018-02-16 14:26 | NUR ---
R ARM PICC DC AND TIP SENT FOR CULTURE. PT TOLERATED WELL.
[2018-02-16 16:00] VITALS: BP 133/77
--- NOTE | 2018-02-16 18:04 | NUR ---
CT OF ABD RESULTS CALLED TO DR ARMANDO AND WOULD LIKE PT TRANSFERRED BACK TO SURGEON AT [facility]. DR Bridget ST MADE AWARE.
[2018-02-16 20:00] VITALS: BP 112/63
--- NOTE | 2018-02-16 23:15 | NUR ---
MEDEICATED WITH NORCO PER PRN ORDER FOR C/O PAIN.
--- NOTE | 2018-02-16 23:30 | NUR ---
PT REFUSED TO HAVE DISCHARGE WOUND PICTURES TAKEN. ASI HERE AND PT TRANSFERRED TO [facility] ED. REPORT GIVEN TO SENDY. ALL BELONGINGS AND PAPERWORK SENT WITH PT.
--- NOTE | 2018-02-17 06:53 | NUR ---
PHYSICAL THERAPY CO-SIGN I approve of the Phyical Therapy notes written above. PADMINI AGUILAR PT
[2018-02-23 10:06] LABS: RESULT 1 Candida parapsilosis (.)
[2018-03-01 14:11] LABS: AMPHOTERICIN B MIC 0.5 ug/mL (.); FLUCYTOSINE MIC 0.12 ug/mL (.); ITRACONAZOLE MIC 0.25 ug/mL (.); KETOCONAZOLE MIC 0.06 ug/mL (.); YEAST ID Candida parapsilosis (.)
[2018-06-25] MEDS ORDERED: SEPTDS PO (02:32)
== END 2018-02-16 23:30 | disposition short-term general hospital (02) | DRG 871 ==
LOC: ED 14:25 → EDHOLD 16:09 → ICCU 16:09
PROVIDERS: Emergency Medicine; Family Medicine; Internal Medicine Nephrology; Student in an Organized Health Care Education/Training Program; ADMIT Internal Medicine
DX: A41.9 Sepsis, unspecified organism (principal); L89.154 Pressure ulcer of sacral region, stage 4; E43 Unspecified severe protein-calorie malnutrition; E87.2 Acidosis; E87.1 Hypo-osmolality and hyponatremia; A49.1 Streptococcal infection, unspecified site; Z16.21 Resistance to vancomycin; J42 Unspecified chronic bronchitis; I10 Essential (primary) hypertension; R65.20 Severe sepsis without septic shock; R31.9 Hematuria, unspecified; E86.0 Dehydration; E78.5 Hyperlipidemia, unspecified; K21.9 Gastro-esophageal reflux disease without esophagitis; E55.9 Vitamin D deficiency, unspecified; E53.8 Deficiency of other specified B group vitamins; R73.9 Hyperglycemia, unspecified; R74.0 Nonspecific elevation of levels of transaminase and lactic acid dehydrogenase [LDH]; R80.0 Isolated proteinuria; D64.9 Anemia, unspecified; F17.210 Nicotine dependence, cigarettes, uncomplicated; B34.9 Viral infection, unspecified; Z88.1 Allergy status to other antibiotic agents; Z79.899 Other long term (current) drug therapy; Z79.4 Long term (current) use of insulin; Z87.11 Personal history of peptic ulcer disease; Z87.442 Personal history of urinary calculi; Z98.891 History of uterine scar from previous surgery; Z90.81 Acquired absence of spleen; Z93.6 Other artificial openings of urinary tract status; Z82.49 Family history of ischemic heart disease and other diseases of the circulatory system; Z82.61 Family history of arthritis; Z71.6 Tobacco abuse counseling; Z68.23 Body mass index [BMI] 23.0-23.9, adult

== ENCOUNTER → 2018-03-20 | Outpatient (CLI) | payer OTHER ==
[~2018-03-20] MED LIST changes: +AMOXICILLIN500 M2 PO; +APLISOL5 TUB UNIT IC; +AVPAK AZITHROM250 MG PO; +Duragesic 25 M25 MCG TD; +FLEET ENEMA 13133 ML R; +FLORASTOR250 MG PO; +HEPARIN SO5000 UNIT4 IV; +OCTREOTIDE500 MCG/2 SC; +OXYCODONE H5 MG/5 ML PO; +PREDNISONE20 M1 PO; +PROTONIX40 M2 PO; +SEPTDS PO; +TYLENOL325 M1 PO; +[UNRECOGNIZED DRUG - CODE] SC
== END | disposition home or self-care (01) ==
LOC: CT 07:45
DX: N20.0 Calculus of kidney (principal); K63.1 Perforation of intestine (nontraumatic)

== ENCOUNTER 2018-03-24 22:52 | Emergency (ER) | payer OTHER ==
[~2018-03-24] VITALS: Ht 160 cm; Wt 53.1 kg
[~2018-03-24 22:52] MED LIST changes: -AVPAK AZITHROM250 MG PO; -PREDNISONE20 M1 PO
[2018-06-25] MEDS ORDERED: SEPTDS PO (02:32)
== END 2018-03-25 01:49 | disposition other institution (70) ==
LOC: ED 22:52
DX: T82.524A Displacement of infusion catheter, initial encounter (principal); F17.200 Nicotine dependence, unspecified, uncomplicated; Z88.1 Allergy status to other antibiotic agents; Z79.899 Other long term (current) drug therapy

== ENCOUNTER → 2018-04-13 | Outpatient (CLI) | payer OTHER ==
[~2018-04-13] MED LIST changes: +AVPAK AZITHROM250 MG PO; +PREDNISONE20 M1 PO
== END | disposition home or self-care (01) ==
LOC: CT 09:09
DX: N20.2 Calculus of kidney with calculus of ureter (principal); K65.1 Peritoneal abscess; Z96.89 Presence of other specified functional implants

== ENCOUNTER 2018-04-14 10:49 | Emergency (ER) | payer OTHER ==
[~2018-04-14 10:49] MED LIST changes: -AVPAK AZITHROM250 MG PO; -PREDNISONE20 M1 PO
[2018-06-25] MEDS ORDERED: SEPTDS PO (02:32)
== END 2018-04-14 14:22 | disposition home or self-care (01) ==
LOC: ED 10:49
DX: T83.022A Displacement of nephrostomy catheter, initial encounter (principal); J44.9 Chronic obstructive pulmonary disease, unspecified; I10 Essential (primary) hypertension; F17.200 Nicotine dependence, unspecified, uncomplicated; Z88.1 Allergy status to other antibiotic agents; Z79.899 Other long term (current) drug therapy; Z87.442 Personal history of urinary calculi

== ENCOUNTER 2018-05-04 17:49 | Emergency (ER) | payer OTHER ==
[~2018-05-04] VITALS: Ht 160 cm; Wt 57.2 kg
[2018-05-04 18:46] LABS: BASO # 0.1 10*3/uL (0.0-0.1); BASO % 0.4 % (0.0-1.0); EOS # 0.5 10*3/uL (0.0-0.4); EOS % 3.6 % (1.0-4.0); HEMATOCRIT 32.2 % (37.0-47.0); HEMOGLOBIN 10.5 g/dl (12.0-16.0); LYMPH # 2.9 10*3/uL (1.3-4.4); LYMPH % 21.2 % (27.0-41.0); MEAN CELL VOLUME 98.8 fl (81.0-99.0); MEAN CORPUSCULAR HGB 32.2 pg (27.0-31.0); MEAN CORPUSCULAR HGB CONC 32.6 g/dl (33.0-37.0); MEAN PLATELET VOLUME 10.3 fl (9.6-12.3); MONO # 1.5 10*3/uL (0.1-1.0); MONO % 11.1 % (3.0-9.0); NEUT # 8.5 10*3/uL (2.3-7.9); PLATELET COUNT AUTOMATED 517 10*3/uL (130-400); RED BLOOD COUNT 3.26 10*6/uL (4.10-5.10); WHITE BLOOD COUNT 13.5 10*3/uL (4.8-10.8)
[2018-05-04 19:06] LABS: ALBUMIN 2.5 gm/dl (3.1-4.5); ALKALINE PHOSPHATASE 558 U/L (45-117); BUN 31 mg/dl (7-24); CHLORIDE 108 mmol/L (98-107); CREATININE 0.56 mg/dL (0.55-1.02); LIPASE 61 U/L (73-393); POTASSIUM 3.8 mmol/L (3.5-5.1); SGOT/AST 51 IU/L (3-35); SGPT/ALT 119 U/L (12-78); SODIUM 138 mmol/L (136-145)
[2018-05-04] MEDS ORDERED: PREDNISONE20 M1 PO (21:14)
[2018-05-04] MEDS ORDERED: AVPAK AZITHROM250 MG PO (21:14)
[2018-06-25] MEDS ORDERED: SEPTDS PO (02:32)
== END 2018-05-04 23:46 | disposition other institution (70) ==
LOC: ED 17:49
PROVIDERS: Nurse Practitioner Family
DX: J20.9 Acute bronchitis, unspecified (principal); R10.9 Unspecified abdominal pain; I10 Essential (primary) hypertension; F17.200 Nicotine dependence, unspecified, uncomplicated; Z88.1 Allergy status to other antibiotic agents; Z79.899 Other long term (current) drug therapy; Z93.6 Other artificial openings of urinary tract status

== ENCOUNTER 2018-05-20 15:09 | Emergency (ER) | payer OTHER ==
[~2018-05-20] VITALS: Wt 59.0 kg
[~2018-05-20 15:09] MED LIST changes: +AVPAK AZITHROM250 MG PO; +PREDNISONE20 M1 PO
[2018-06-25] MEDS ORDERED: SEPTDS PO (02:32)
== END 2018-05-20 21:44 | disposition short-term general hospital (02) ==
LOC: ED 15:09
DX: T85.698A Other mechanical complication of other specified internal prosthetic devices, implants and grafts, initial encounter (principal); F17.200 Nicotine dependence, unspecified, uncomplicated; Z79.899 Other long term (current) drug therapy; Z88.1 Allergy status to other antibiotic agents; Y92.89 Other specified places as the place of occurrence of the external cause

== ENCOUNTER → 2018-06-09 | Outpatient (CLI) | payer OTHER | END | disposition home or self-care (01) | LOC: CT 12:14 | DX: K65.1 Peritoneal abscess (principal); N20.0 Calculus of kidney; Z90.5 Acquired absence of kidney ==

== ENCOUNTER → 2018-07-03 | Outpatient (CLI) | payer OTHER | END | disposition home or self-care (01) | LOC: CT 08:21 | DX: N28.1 Cyst of kidney, acquired (principal); N20.1 Calculus of ureter; N20.0 Calculus of kidney; Z90.81 Acquired absence of spleen ==

== ENCOUNTER 2018-08-16 11:37 | Emergency (ER) | payer OTHER ==
[~2018-08-16] VITALS: Wt 59.9 kg
--- NOTE | ~2018-08-16 | EKG ---
[place], [place] ELECTROCARDIOGRAM REPORT NAME: ELLE KELLER UNIT #: [id number] ROOM: DOCTOR: EPIPHANY DRAFT REPORT BIRTHDATE: [birth year] [facility] Test Date: 2018-08-16 Test Time: 13:02:45 Pat Name: ELLE KELLER Department: Room: Gender: F Coil Winding Supervisor: : 1955 Requested By: CAROLA OZUNA PA-C Order Number: [id number] Reading MD: Mouna Carolina MD Measurements Intervals [place] Rate: 94 P: 75 AK: 152 QRS: 72 QRSD: 91 T: 50 QT: 375 QTc: 469 Interpretive Statements Sinus rhythm Compared to ECG 07/12/2018 13:18:48 No significant changes Electronically Signed On 08-18-2018 9:10:39 PDT by Mouna Carolina MD CM:EKGRPT:ELECTROCARDIOGRAM REPORT 1302 0910 CAROLA OZUNA PA-C EPIPHANY DRAFT REPORT CAROLA OZUNA PA-C
[2018-08-16 13:32] LABS: INTERNATIONAL NORM RATIO 0.9 (2.0-3.5)
== END 2018-08-16 17:07 | disposition short-term general hospital (02) ==
LOC: ED 11:37
PROVIDERS: Physician Assistant
DX: A41.9 Sepsis, unspecified organism (principal); R05 Cough; R53.1 Weakness; M53.3 Sacrococcygeal disorders, not elsewhere classified; F17.200 Nicotine dependence, unspecified, uncomplicated; Z88.1 Allergy status to other antibiotic agents; Z79.899 Other long term (current) drug therapy; Z93.6 Other artificial openings of urinary tract status; Z95.9 Presence of cardiac and vascular implant and graft, unspecified; Z97.8 Presence of other specified devices

== ENCOUNTER 2018-09-13 11:13 | Emergency (ER) | payer OTHER ==
[~2018-09-13] VITALS: Ht 167.6 cm; Wt 61.2 kg
== END 2018-09-13 19:05 | disposition short-term general hospital (02) ==
LOC: ED 11:13
DX: L08.89 Other specified local infections of the skin and subcutaneous tissue (principal); J44.9 Chronic obstructive pulmonary disease, unspecified; I10 Essential (primary) hypertension; F17.200 Nicotine dependence, unspecified, uncomplicated; Z93.6 Other artificial openings of urinary tract status; Z90.49 Acquired absence of other specified parts of digestive tract; Z87.442 Personal history of urinary calculi; Z88.1 Allergy status to other antibiotic agents; Z79.899 Other long term (current) drug therapy

== ENCOUNTER 2018-10-24 17:02 | Emergency (ER) | payer OTHER ==
[~2018-10-24] VITALS: Wt 56.2 kg
--- NOTE | ~2018-10-24 | EKG ---
[place], [place] ELECTROCARDIOGRAM REPORT NAME: ELLE KELLER UNIT #: [id number] ROOM: DOCTOR: EPIPHANY DRAFT REPORT BIRTHDATE: [birth year] [facility] Test Date: 2018-10-24 Test Time: 17:39:26 Pat Name: ELLE KELLER Department: Room: [facility] Gender: F Tree Warden: : 1955 Requested By: JOSELYN CLAYTON Order Number: [id number] Reading MD: Guru Figueroa MD Measurements Intervals [place] Rate: 108 P: 60 MN: 146 QRS: 53 QRSD: 96 T: 33 QT: 327 QTc: 439 Interpretive Statements Sinus tachycardia Compared to ECG 08/16/2018 13:02:45 Sinus rhythm no longer present Electronically Signed On 10-26-2018 8:13:36 PDT by Guru Figueroa MD CM:EKGRPT:ELECTROCARDIOGRAM REPORT 1739 0813 JOSELYN TURNER DRAFT REPORT JOSELYN CLAYTON DO
[2018-10-24 17:07] VITALS: BP 105/66
[2018-10-24 18:04] LABS: HEMATOCRIT 30.5 % (37.0-47.0); HEMOGLOBIN 9.9 g/dl (12.0-16.0); MEAN CORPUSCULAR HGB 31.7 pg (27.0-31.0); MEAN CORPUSCULAR HGB CONC 32.5 g/dl (33.0-37.0); MEAN PLATELET VOLUME 11.9 fl (9.6-12.3); PLATELET COUNT AUTOMATED 433 10*3/uL (130-400); RED BLOOD COUNT 3.12 10*6/uL (4.10-5.10); RED CELL DISTRI WIDTH 15.4 % (0-14.5); WHITE BLOOD COUNT 15.9 10*3/uL (4.8-10.8)
[2018-10-24 18:07] LABS: MEAN CELL VOLUME 97.8 fl (81.0-99.0)
[2018-10-24 18:22] LABS: ALBUMIN 2.6 gm/dl (3.1-4.5); ALKALINE PHOSPHATASE 445 U/L (45-117); CHLORIDE 106 mmol/L (98-107); CREATININE 0.71 mg/dL (0.55-1.02); LIPASE 98 U/L (73-393); SGOT/AST 32 IU/L (3-35); SGPT/ALT 40 U/L (12-78); SODIUM 137 mmol/L (136-145); TOTAL PROTEIN 8.1 gm/dL (6.4-8.2)
[2018-10-24 18:27] LABS: BUN 40 mg/dl (7-24); POTASSIUM 4.2 mmol/L (3.5-5.1); TROPONIN I < 0.015 ng/ml (<0.045)
[2018-10-24 18:35] LABS: TOTAL CELLS COUNTED 100 #CELLS
[2018-10-24 18:36] LABS: PLATELET SUFFICIENCY NORMAL (NORMAL); STOMATOCYTE FEW
[2018-10-24 18:52] LABS: BILIRUBIN NEGATIVE (NEGATIVE); BLOOD 2+ (NEGATIVE); CLARITY CLOUDY (CLEAR); COLOR YELLOW (YELLOW); GLUCOSE NEGATIVE (NEGATIVE); KETONE NEGATIVE (NEGATIVE); LEUKO ESTERASE 3+ (NEGATIVE); NITRITE NEGATIVE (NEGATIVE); PH 7.5 (5.0-9.0); SPECIFIC GRAVITY 1.015 (1.005-1.030)
[2018-10-24 19:03] LABS: BACTERIA 1+; RBC 51-100 rbc/hpf (0-2); WBC TNTC wbc/hpf (0-5)
[2018-10-24 19:05] LABS: CLARITY CLOUDY (CLEAR); COLOR YELLOW (YELLOW); LEUKO ESTERASE 3+ (NEGATIVE); NITRITE NEGATIVE (NEGATIVE)
[2018-10-24 19:06] LABS: PH > 8.0 (5.0-9.0); UROBILINOGEN 0.2 E.U./dl (0.2-1.0)
[2018-10-24 19:07] LABS: BLOOD 2+ (NEGATIVE); SPECIFIC GRAVITY < 1.000 (1.005-1.030)
[2018-10-24 19:08] LABS: BILIRUBIN NEGATIVE (NEGATIVE); GLUCOSE NEGATIVE (NEGATIVE); KETONE NEGATIVE (NEGATIVE)
[2018-10-24 19:13] LABS: TRIP PHOS CRYSTALS 4+
--- NOTE | 2018-10-24 19:58 | NUR ---
PT PROVIDED ICE CHIPS.
[2018-10-24 19:59] VITALS: BP 105/65
--- NOTE | 2018-10-24 20:24 | NUR ---
DR SETH AT BEDSIDE TO FLUSHING OF RT NEPHROSTOMY TUBE.
--- NOTE | 2018-10-24 22:05 | NUR ---
JOE FROM [facility] RETURNED CALL AND PROVIDED ROOM ASSIGNMENT FOR PT.PT TO GO TO [facility], RM 3002 BED 1.
--- NOTE | 2018-10-24 22:59 | NUR ---
TRIED TO MAKE CONTACT WITH ACCEPTING FACILTY TO GIVE NURSE TO NURSE REPORT. WAS PLACED ON HOLD FOR 10 MIN, WILL ATTEMPT TO CALL AGAIN.
--- NOTE | 2018-10-24 23:46 | NUR ---
ATTEMPTED TO CONTACT FACILITY FOR THE SECOND TIME. WAS BEING TRANSFERED TO SPEAK TO THE NURSE AND NO ONE ANSWERED THE PHONE.
--- NOTE | 2018-10-25 00:17 | NUR ---
Transfer Out, from the Emergency Department - Stable This patient, ELLE KELLER, 63, 55, [id number], [id number], was examined by the Emergency Department physician, MARYJANE Louis DO and efforts were made to stabilize the patient. The patient's condition is stable. The reason for transfer is need higher level of care . The Emergency physician has made the decision to transfer the patient out. Refer to the ED physician's dictation for the family/back-up physician notified. The attending physician has spoken to the accepting physician at the receiving facility, . Refer to the ED physician's dictation. The receiving facility has space and qualified personnel to care for the patient, and has agreed to accept the patient. Proper equipment and trained personnel have been arranged. The mode of transport is ground. The agency is [facility]. The Emergency physician has spoken to the transport staff re: patient's condition and needs during transport. Copies of the medical record have been forwarded to the receiving facility, including: - Emergency Department record: - name, address, hospital number, age, next of kin - presenting problem - history of injury, past medical history - treatment, medications & route, fluid type & volume - lab and xray findings, films - physical findings - vitals signs -- prehospital, emergency, pre-transfer - preliminary diagnosis - status/condition - emergency medical services record - consent for transfer - authorization for record release - name of any involed physicians -- responsive or not - name and address of referring physician - name of contact physician at receiving facility - name of accepting physician at receiving facility Nursing report has been given to FACILITY WAS UNAVALIABLE FOR REPORT. Valuables include ALL PERSONAL BELONGINGS. and were given to PATIENT AND EMS. CORDELL SMITH
--- NOTE | 2018-10-25 00:49 | NUR ---
RECIEVING FACILTY CALLED IN ON PT ARRIVAL. REPORT WAS GIVEN TO RN.
== END 2018-10-24 23:46 | disposition short-term general hospital (02) ==
LOC: ED 17:02 → EDHOLD 18:45 → ED 23:46
PROVIDERS: Emergency Medicine
DX: A41.9 Sepsis, unspecified organism (principal); N99.528 Other complication of incontinent external stoma of urinary tract; R53.83 Other fatigue; I10 Essential (primary) hypertension; J44.9 Chronic obstructive pulmonary disease, unspecified; F17.200 Nicotine dependence, unspecified, uncomplicated; Z88.1 Allergy status to other antibiotic agents; Z79.899 Other long term (current) drug therapy; Z87.19 Personal history of other diseases of the digestive system; Z87.442 Personal history of urinary calculi

== ENCOUNTER → 2018-11-08 | Outpatient (CLI) | payer OTHER | END | disposition home or self-care (01) | LOC: RAD 07:08 | DX: K56.609 Unspecified intestinal obstruction, unspecified as to partial versus complete obstruction (principal) ==

== ENCOUNTER → 2018-11-16 | Outpatient (CLI) | payer OTHER | END | disposition home or self-care (01) | LOC: CT 11-06 08:00 | DX: K63.2 Fistula of intestine (principal); N13.30 Unspecified hydronephrosis ==

== ENCOUNTER → 2018-12-13 | Outpatient (CLI) | payer OTHER | END | disposition home or self-care (01) | LOC: RAD 07:28 | DX: K63.1 Perforation of intestine (nontraumatic) (principal) ==

== ENCOUNTER 2019-01-16 05:22 | Emergency (ER) | payer OTHER ==
[~2019-01-16] VITALS: Ht 160 cm; Wt 66.2 kg
[2019-01-16 06:28] LABS: HEMOGLOBIN 10.8 g/dl (12.0-16.0); MEAN CELL VOLUME 98.3 fl (81.0-99.0); MEAN CORPUSCULAR HGB 31.2 pg (27.0-31.0); MEAN CORPUSCULAR HGB CONC 31.8 g/dl (33.0-37.0); MEAN PLATELET VOLUME 10.8 fl (9.6-12.3); PLATELET COUNT AUTOMATED 470 10*3/uL (130-400); RED BLOOD COUNT 3.46 10*6/uL (4.10-5.10)
[2019-01-16 06:43] LABS: ALBUMIN 2.6 gm/dl (3.1-4.5); ALKALINE PHOSPHATASE 553 U/L (45-117); BUN 15 mg/dl (7-24); CHLORIDE 106 mmol/L (98-107); CREATININE 0.65 mg/dL (0.55-1.02); LIPASE 69 U/L (73-393); POTASSIUM 3.6 mmol/L (3.5-5.1); SGOT/AST 45 IU/L (3-35); SGPT/ALT 106 U/L (12-78); SODIUM 137 mmol/L (136-145); TOTAL PROTEIN 7.6 gm/dL (6.4-8.2)
[2019-01-16 06:49] LABS: ATYPICAL LYMPHS 3 % (0-0); TOTAL CELLS COUNTED 100 #CELLS
[2019-01-16 06:50] LABS: PLATELET SUFFICIENCY HIGH (NORMAL); POLYCHROMASIA SLIGHT; TARGET CELLS FEW
[2019-01-16 07:39] LABS: ACT PARTIAL THROMBO TIME 29.6 SECONDS (20.0-32.1)
[2019-01-16 08:21] LABS: BILIRUBIN NEGATIVE (NEGATIVE); BLOOD 1+ (NEGATIVE); CLARITY CLOUDY (CLEAR); COLOR YELLOW (YELLOW); GLUCOSE NEGATIVE (NEGATIVE); KETONE NEGATIVE (NEGATIVE); LEUKO ESTERASE 3+ (NEGATIVE); NITRITE NEGATIVE (NEGATIVE); PH 7.5 (5.0-9.0); SPECIFIC GRAVITY 1.015 (1.005-1.030)
[2019-01-16 08:30] LABS: WBC TNTC wbc/hpf (0-5)
[2019-01-16 08:31] LABS: BACTERIA 2+; RBC 16-20 rbc/hpf (0-2)
== END 2019-01-16 14:07 | disposition short-term general hospital (02) ==
LOC: ED 05:22
PROVIDERS: Emergency Medicine
DX: A41.9 Sepsis, unspecified organism (principal); N13.2 Hydronephrosis with renal and ureteral calculous obstruction; N39.0 Urinary tract infection, site not specified; J44.9 Chronic obstructive pulmonary disease, unspecified; I10 Essential (primary) hypertension; F17.200 Nicotine dependence, unspecified, uncomplicated; Z87.442 Personal history of urinary calculi; Z90.89 Acquired absence of other organs; Z88.1 Allergy status to other antibiotic agents; Z79.899 Other long term (current) drug therapy; Z79.4 Long term (current) use of insulin; Z93.6 Other artificial openings of urinary tract status

== ENCOUNTER 2019-02-16 15:58 | Emergency (ER) | payer OTHER | END 2019-02-17 00:25 | disposition short-term general hospital (02) | LOC: ED 15:58 | DX: K94.23 Gastrostomy malfunction (principal); J44.9 Chronic obstructive pulmonary disease, unspecified; I10 Essential (primary) hypertension; Z79.899 Other long term (current) drug therapy; Z79.4 Long term (current) use of insulin; Z97.8 Presence of other specified devices; Z93.6 Other artificial openings of urinary tract status; Z95.9 Presence of cardiac and vascular implant and graft, unspecified; Z88.1 Allergy status to other antibiotic agents; Y84.8 Other medical procedures as the cause of abnormal reaction of the patient, or of later complication, without mention of misadventure at the time of the procedure ==

== ENCOUNTER 2019-02-28 14:44 | Emergency (ER) | payer OTHER ==
[~2019-02-28] VITALS: Ht 160 cm; Wt 64.4 kg
[2019-02-28 16:19] LABS: HEMATOCRIT 29.8 % (37.0-47.0); HEMOGLOBIN 9.7 g/dl (12.0-16.0); MEAN CELL VOLUME 96.8 fl (81.0-99.0); MEAN CORPUSCULAR HGB 31.5 pg (27.0-31.0); MEAN CORPUSCULAR HGB CONC 32.6 g/dl (33.0-37.0); MEAN PLATELET VOLUME 10.5 fl (9.6-12.3); PLATELET COUNT AUTOMATED 619 10*3/uL (130-400); RED BLOOD COUNT 3.08 10*6/uL (4.10-5.10); RED CELL DISTRI WIDTH 17.2 % (0-14.5); WHITE BLOOD COUNT 14.5 10*3/uL (4.8-10.8)
[2019-02-28 16:36] LABS: ALBUMIN 2.3 gm/dl (3.1-4.5); ALKALINE PHOSPHATASE 383 U/L (45-117); BUN 19 mg/dl (7-24); CHLORIDE 107 mmol/L (98-107); CREATININE 0.52 mg/dL (0.55-1.02); POTASSIUM 3.9 mmol/L (3.5-5.1); SGOT/AST 69 IU/L (3-35); SGPT/ALT 74 U/L (12-78); SODIUM 142 mmol/L (136-145); TOTAL PROTEIN 6.5 gm/dL (6.4-8.2)
[2019-02-28 16:40] LABS: ATYPICAL LYMPHS 3 % (0-0); BASOPHILS 1 % (0-1); PLATELET SUFFICIENCY HIGH (NORMAL); TOTAL CELLS COUNTED 100 #CELLS
[2019-02-28 16:41] LABS: TARGET CELLS FEW
== END 2019-02-28 23:39 | disposition short-term general hospital (02) ==
LOC: ED 14:44
PROVIDERS: Emergency Medicine
DX: T83.512A Infection and inflammatory reaction due to nephrostomy catheter, initial encounter (principal); N39.0 Urinary tract infection, site not specified; J44.9 Chronic obstructive pulmonary disease, unspecified; I10 Essential (primary) hypertension; F17.200 Nicotine dependence, unspecified, uncomplicated; Z88.1 Allergy status to other antibiotic agents; Z79.899 Other long term (current) drug therapy; Z79.4 Long term (current) use of insulin; Y92.89 Other specified places as the place of occurrence of the external cause

== ENCOUNTER 2019-03-10 09:12 | Emergency (ER) | payer OTHER ==
[2019-03-10 10:33] LABS: BUN 20 mg/dl (7-24); CHLORIDE 111 mmol/L (98-107); CREATININE 0.74 mg/dL (0.55-1.02); POTASSIUM 3.8 mmol/L (3.5-5.1); SODIUM 143 mmol/L (136-145)
== END 2019-03-10 20:44 | disposition short-term general hospital (02) ==
LOC: ED 09:12
PROVIDERS: Emergency Medicine
DX: K94.23 Gastrostomy malfunction (principal); R19.7 Diarrhea, unspecified; J44.9 Chronic obstructive pulmonary disease, unspecified; I10 Essential (primary) hypertension; Z88.1 Allergy status to other antibiotic agents; Z79.899 Other long term (current) drug therapy; Z87.442 Personal history of urinary calculi; Z98.890 Other specified postprocedural states; Y84.8 Other medical procedures as the cause of abnormal reaction of the patient, or of later complication, without mention of misadventure at the time of the procedure

== ENCOUNTER 2019-05-14 06:58 | Emergency (ER) | payer OTHER ==
[~2019-05-14] VITALS: Ht 160 cm; Wt 72.6 kg
[2019-05-14 08:28] LABS: HEMATOCRIT 36.6 % (37.0-47.0); HEMOGLOBIN 11.4 g/dl (12.0-16.0); MEAN CELL VOLUME 99.5 fl (81.0-99.0); MEAN CORPUSCULAR HGB CONC 31.1 g/dl (33.0-37.0); MEAN PLATELET VOLUME 10.8 fl (9.6-12.3); PLATELET COUNT AUTOMATED 395 10*3/uL (130-400); RED BLOOD COUNT 3.68 10*6/uL (4.10-5.10); RED CELL DISTRI WIDTH 14.1 % (0-14.5); WHITE BLOOD COUNT 15.9 10*3/uL (4.8-10.8)
[2019-05-14 08:38] LABS: ACT PARTIAL THROMBO TIME 26.9 SECONDS (20.0-32.1)
[2019-05-14 08:44] LABS: ALBUMIN 2.8 gm/dl (3.1-4.5); ALKALINE PHOSPHATASE 489 U/L (45-117); BUN 15 mg/dl (7-24); CHLORIDE 106 mmol/L (98-107); CREATININE 0.66 mg/dL (0.55-1.02); LIPASE 55 U/L (73-393); POTASSIUM 3.9 mmol/L (3.5-5.1); SGOT/AST 76 IU/L (3-35); SGPT/ALT 127 U/L (12-78); SODIUM 140 mmol/L (136-145); TOTAL PROTEIN 7.2 gm/dL (6.4-8.2)
[2019-05-14 08:46] LABS: TROPONIN I < 0.015 ng/ml (<0.045)
[2019-05-14 08:59] LABS: BASOPHILS 1 % (0-1); PLATELET SUFFICIENCY NORMAL (NORMAL); STOMATOCYTE FEW; TARGET CELLS FEW; TOTAL CELLS COUNTED 100 #CELLS
== END 2019-05-14 16:38 | disposition short-term general hospital (02) ==
LOC: ED 06:58
PROVIDERS: Emergency Medicine
DX: A41.9 Sepsis, unspecified organism (principal); K65.1 Peritoneal abscess; I10 Essential (primary) hypertension; J44.9 Chronic obstructive pulmonary disease, unspecified; Z79.2 Long term (current) use of antibiotics; Z79.899 Other long term (current) drug therapy; Z79.4 Long term (current) use of insulin; Z87.891 Personal history of nicotine dependence; Z97.8 Presence of other specified devices; Z98.890 Other specified postprocedural states

== ENCOUNTER → 2019-07-23 | Outpatient (CLI) | payer OTHER | END | disposition home or self-care (01) | LOC: US 08:16 | DX: T81.30XA Disruption of wound, unspecified, initial encounter (principal); L76.82 Other postprocedural complications of skin and subcutaneous tissue ==

== ENCOUNTER → 2019-07-24 | Outpatient (CLI) | payer OTHER | END | disposition home or self-care (01) | LOC: RESCLI | DX: S31.000D Unspecified open wound of lower back and pelvis without penetration into retroperitoneum, subsequent encounter (principal); K26.7 Chronic duodenal ulcer without hemorrhage or perforation; J44.9 Chronic obstructive pulmonary disease, unspecified; I10 Essential (primary) hypertension; K76.0 Fatty (change of) liver, not elsewhere classified; N13.2 Hydronephrosis with renal and ureteral calculous obstruction; G62.9 Polyneuropathy, unspecified; R60.9 Edema, unspecified; R53.1 Weakness; R26.2 Difficulty in walking, not elsewhere classified; F17.200 Nicotine dependence, unspecified, uncomplicated; Z98.890 Other specified postprocedural states; Z79.899 Other long term (current) drug therapy; X58.XXXD Exposure to other specified factors, subsequent encounter ==

== ENCOUNTER → 2019-08-06 | Outpatient (CLI) | payer OTHER ==
[2019-08-06 09:21] LABS: BASO # 0.1 10*3/uL (0.0-0.1); BASO % 1.1 % (0.0-1.0); EOS % 11.8 % (1.0-4.0); HEMATOCRIT 44.3 % (37.0-47.0); LYMPH # 2.5 10*3/uL (1.3-4.4); MEAN CELL VOLUME 95.5 fl (81.0-99.0); MEAN CORPUSCULAR HGB 30.2 pg (27.0-31.0); MEAN CORPUSCULAR HGB CONC 31.6 g/dl (33.0-37.0); MEAN PLATELET VOLUME 10.2 fl (9.6-12.3); MONO % 11.9 % (3.0-9.0); PLATELET COUNT AUTOMATED 443 10*3/uL (130-400); RED BLOOD COUNT 4.64 10*6/uL (4.10-5.10); RED CELL DISTRI WIDTH 14.6 % (0-14.5); WHITE BLOOD COUNT 8.7 10*3/uL (4.8-10.8)
[2019-08-06 09:58] LABS: CHLORIDE 109 mmol/L (98-107); POTASSIUM 4.2 mmol/L (3.5-5.1); SODIUM 142 mmol/L (136-145)
[2019-08-06 10:05] LABS: ALBUMIN 3.4 gm/dl (3.1-4.5); ALKALINE PHOSPHATASE 240 U/L (45-117); BUN 27 mg/dl (7-24); CREATININE 0.97 mg/dL (0.55-1.02); PREALBUMIN 23 mg/dl (20-40); SGOT/AST 21 IU/L (3-35); SGPT/ALT 41 U/L (12-78); TOTAL PROTEIN 7.8 gm/dL (6.4-8.2)
== END | disposition home or self-care (01) ==
LOC: LAB 08:48
DX: T81.30XD Disruption of wound, unspecified, subsequent encounter (principal); L76.82 Other postprocedural complications of skin and subcutaneous tissue; R73.9 Hyperglycemia, unspecified

== ENCOUNTER → 2019-10-03 | Outpatient (CLI) | payer OTHER | END | disposition home or self-care (01) | LOC: RESCLI 05:53 | DX: G62.9 Polyneuropathy, unspecified (principal); R60.9 Edema, unspecified; I10 Essential (primary) hypertension; F17.210 Nicotine dependence, cigarettes, uncomplicated; Z99.3 Dependence on wheelchair; Z12.11 Encounter for screening for malignant neoplasm of colon; Z12.31 Encounter for screening mammogram for malignant neoplasm of breast; Z12.4 Encounter for screening for malignant neoplasm of cervix; Z79.899 Other long term (current) drug therapy; Z98.890 Other specified postprocedural states; Z88.8 Allergy status to other drugs, medicaments and biological substances ==

== ENCOUNTER → 2019-10-17 | Outpatient (CLI) | payer OTHER | END | disposition home or self-care (01) | LOC: MAMMO 10:49 | PROVIDERS: ATTEND Emergency Medicine | DX: Z12.31 Encounter for screening mammogram for malignant neoplasm of breast (principal); N64.89 Other specified disorders of breast ==

== ENCOUNTER → 2020-01-16 | Outpatient (CLI) | payer MEDICARE, MEDICAID ==
[2020-01-16 10:48] LABS: BASO # 0.1 10*3/uL (0.0-0.1); EOS # 0.7 10*3/uL (0.0-0.4); HEMATOCRIT 51.2 % (37.0-47.0); LYMPH # 2.9 10*3/uL (1.3-4.4); LYMPH % 30.7 % (27.0-41.0); MEAN CELL VOLUME 94.6 fl (81.0-99.0); MEAN CORPUSCULAR HGB 29.9 pg (27.0-31.0); MEAN CORPUSCULAR HGB CONC 31.6 g/dl (33.0-37.0); MEAN PLATELET VOLUME 10.4 fl (9.6-12.3); MONO % 10.5 % (3.0-9.0); NEUT # 4.6 10*3/uL (2.3-7.9); NEUT % 49.5 % (47.0-73.0); PLATELET COUNT AUTOMATED 381 10*3/uL (130-400); RED BLOOD COUNT 5.41 10*6/uL (4.10-5.10); RED CELL DISTRI WIDTH 14.6 % (0-14.5); WHITE BLOOD COUNT 9.3 10*3/uL (4.8-10.8)
[2020-01-16 11:12] LABS: ALBUMIN 3.5 gm/dl (3.1-4.5); ALKALINE PHOSPHATASE 148 U/L (45-117); BUN 23 mg/dl (7-24); CHLORIDE 110 mmol/L (98-107); CREATININE 0.73 mg/dL (0.55-1.02); POTASSIUM 4.4 mmol/L (3.5-5.1); SGOT/AST 17 IU/L (3-35); SGPT/ALT 40 U/L (12-78); SODIUM 142 mmol/L (136-145)
== END | disposition home or self-care (01) ==
LOC: RESCLI 00:39
PROVIDERS: Social Worker Clinical; ATTEND Internal Medicine
DX: J44.9 Chronic obstructive pulmonary disease, unspecified (principal); R06.01 Orthopnea; E55.9 Vitamin D deficiency, unspecified; G62.9 Polyneuropathy, unspecified; F17.210 Nicotine dependence, cigarettes, uncomplicated; Z99.3 Dependence on wheelchair; Z23 Encounter for immunization; Z53.29 Procedure and treatment not carried out because of patient's decision for other reasons; Z79.899 Other long term (current) drug therapy; Z98.890 Other specified postprocedural states; Z88.8 Allergy status to other drugs, medicaments and biological substances

== ENCOUNTER → 2020-02-18 | Outpatient (CLI) | payer MEDICARE, MEDICAID | END | disposition home or self-care (01) | LOC: CARD 02-04 11:30 | PROVIDERS: ATTEND Social Worker Clinical | DX: E65 Localized adiposity (principal); R06.01 Orthopnea; Z79.899 Other long term (current) drug therapy ==